=== PATIENT | female | born 1990 | race Caucasian/White ===

== ENCOUNTER 2017-05-06 16:43 | Emergency (ER) | payer MEDICAID ==
[2017-05-06 17:20] VITALS: BP 144/89
[2017-05-06] MEDS ORDERED: ACETAMINOPHEN 325 MG TABLET PO STA (18:24)
[2017-05-06] MEDS ORDERED: ACETAMINOPHEN 325 MG TABLET PO ONE (18:30)
--- NOTE | 2017-05-06 19:02 | ED Physician Documentation ---
PD HPI OPHTHO - Stated complaint Stated Complaint: RT EYE PX - Chief complaint Chief Complaint: Heent - History obtained from History obtained from: Patient - History of Present Illness Timing - onset: Yesterday (had some irritation right eye and feels like burning feeling lower eyelid and eye. Noted some redness lower aspect today. No rash around the eye. No hisotry of cold sores.) Timing - details: Gradual onset, Still present Location: Right Quality / character: Itching, Burning Associated symptoms: Redness, Swelling. No: Discharge, Matting, FB sensation, Decreased vision Contributing factors: Wears contacts Similar symptoms before: No diagnosis (had it milder the past few weeks for just day or two and then resolved.) Recently seen: Not recently seen Review of Systems Constitutional: denies: Fever, Chills Eyes: reports: Irritation. denies: Loss of vision, Decreased vision, Photophobia, Discharge Ears: denies: Ear pain Nose: denies: Rhinorrhea / runny nose, Congestion Throat: denies: Sore throat Respiratory: denies: Cough Skin: denies: Rash, Lesions PD PAST MEDICAL HISTORY - Past Medical History Past Medical History: No Cardiovascular: None Respiratory: None Neuro: None Endocrine/Autoimmune: None GI: Other HEENT: Other - Past Surgical History Past Surgical History: Yes General: Cholecystectomy - Present Medications Home Medications: Ambulatory Orders Medication Instructions Recorded Confirmed Ketotifen Fumarate [Alaway] 1 drops EACHEYE BID #10 ml 05/06/17 - Allergies Allergies/Adverse Reactions: Allergies Allergy/AdvReac Type Severity Reaction Status Date / Time banana Allergy Hives Verified 05/06/17 17:22 kiwi Allergy Anaphylaxis Verified 05/06/17 17:22 red (food color) Allergy Respiratory Verified 05/06/17 17:22 - Social History Does the pt smoke?: No Smoking Status: Never smoker Does the pt drink ETOH?: Yes Does the pt have substance abuse?: No - Immunizations Immunizations are current?: Yes - POLST Patient has POLST: No PD ED PE NORMAL - Vitals Vital signs reviewed: Yes - General General: Alert and oriented X 3, No acute distress, Well developed/nourished - HEENT HEENT: Ears normal, Pharynx benign PD ED PE EXPANDED - Eyes Eyes: Right eye, Eyelid swelling (mild lower lid), No eyelid FB (everted), Subconj hemorrhage (mild lower right eye). No: Eyelid erythema, Corneal FB, Fluorescein uptake Results - Vitals Vitals: Oxygen O2 Source Room air PD MEDICAL DECISION MAKING - ED course Complexity details: considered differential, d/w patient Departure - Departure Disposition: 01 Home, Self Care Clinical Impression: Conjunctivitis Qualifiers: Conjunctivitis type: acute Acute conjunctivitis type: unspecified Laterality: right Qualified Code(s): H10.31 - Unspecified acute conjunctivitis, right eye Condition: Stable Record reviewed to determine appropriate education?: Yes Instructions: ED Conjunctivitis Nonspecific Prescriptions: Ketotifen Fumarate [Alaway] 1 drops EACHEYE BID #10 ml Comments: For the right eye currently use the antibiotic/steroid eyedrops 4 times a day for the next 2-3 days until fully improved. Do not wear contacts and that I during the next several days. Recheck if not improved over the next couple of days. If you do get better, then use just the ketotifen antihistamine eyedrops twice daily in both eyes for the next month or so and see if he do not have any recurrent episodes. Follow-up with your hearing instrument specialist in the next week or so. Forms: Activity restrictions Discharge Date/Time: 05/06/17 19:59
[2017-05-06] MEDS ORDERED: NEOMYCIN/POLYMYX/DEXAMETH OPHTH DROPS 5 ML RIGHTEYE STA (19:35)
[2017-05-06] MEDS ORDERED: NEOMYCIN/POLYMYX/DEXAMETH OPHTH DROPS 5 ML ONE (19:44)
== END 2017-05-06 19:59 | disposition home or self-care (01) ==
LOC: ED 16:43
DX: H10.31 Unspecified acute conjunctivitis, right eye (principal)
CPT/HCPCS: 99283; A9270; J3490

== ENCOUNTER 2017-10-20 22:29 | Emergency (ER) | payer MEDICAID ==
[2017-10-21] MEDS ORDERED: KETOROLAC 60 MG/2 ML VIAL IVP STA (01:08)
[2017-10-21] MEDS ORDERED: SODIUM CHLORIDE 0.9% 1,000 ML IV STA (01:08)
--- NOTE | 2017-10-21 01:08 | ED Physician Documentation ---
PD HPI URI - Stated complaint Stated Complaint: FLU LIKE SYMPTOMS - Chief complaint Chief Complaint: Resp - History obtained from History obtained from: Patient - History of Present Illness Timing - onset: How many days ago (1-2) Timing duration: Days Timing details: Abrupt onset Associated symptoms: Fever (subjective (did not take temperature)), Chills, Sweats, Sore throat, Productive cough Similar symptoms before: Has not had sx before Recently seen: Not recently seen Review of Systems Constitutional: reports: Fever (subjective), Chills, Myalgias, Fatigue, Sweats Throat: reports: Sore throat Cardiac: denies: Chest pain / pressure Respiratory: reports: Cough GI: reports: Reviewed and negative PD PAST MEDICAL HISTORY - Past Medical History Past Medical History: No Cardiovascular: None Respiratory: None Neuro: None Endocrine/Autoimmune: None GI: Other HEENT: Other - Past Surgical History Past Surgical History: Yes General: Cholecystectomy - Present Medications Home Medications: Ambulatory Orders Medication Instructions Recorded Confirmed Ketotifen Fumarate [Alaway] 1 drops EACHEYE BID #10 ml 05/06/17 Benzonatate [Tessalon] 200 mg PO TID PRN #20 capsule 10/21/17 guaiFENesin/CODEINE [Robitussin AC] 5 ml PO Q6H PRN #100 udc 10/21/17 - Allergies Allergies/Adverse Reactions: Allergies Allergy/AdvReac Type Severity Reaction Status Date / Time banana Allergy Hives Verified 10/20/17 22:47 kiwi Allergy Anaphylaxis Verified 10/20/17 22:47 red (food color) Allergy Respiratory Verified 10/20/17 22:47 - Social History Does the pt smoke?: No Smoking Status: Never smoker Does the pt drink ETOH?: Yes Does the pt have substance abuse?: No - Immunizations Immunizations are current?: Yes - POLST Patient has POLST: No PD ED PE NORMAL - Vitals Vital signs reviewed: Yes - General General: Alert and oriented X 3, No acute distress, Well developed/nourished - HEENT HEENT: Moist mucous membranes, Pharynx benign - Neck Neck: Supple, no meningeal sign - Cardiac Cardiac: RRR, No murmur - Respiratory Respiratory: No respiratory distress, Other (scattered rhonci, predominantly right-sided) - Extremities Extremities: No edema Results - Vitals Vitals: Oxygen O2 Source Room air - Labs Labs: Laboratory Tests 10/20/17 10/21/17 10/21/17 22:50 01:18 01:18 WBC 10.2 RBC 4.83 Hgb 14.8 Hct 42.7 MCV 88.4 MCH 30.6 MCHC 34.6 RDW 14.2 Plt Count 195 MPV 7.9 Neut # 8.3 H Lymph # 1.2 L [place] # 0.6 Eos # 0.1 Baso # 0.0 Absolute Nucleated RBC 0.00 Nucleated RBC % 0.0 Sodium 137 Potassium 3.3 L Chloride 105 Carbon Dioxide 22 Anion Gap 10.0 BUN 5 L Creatinine 0.7 Estimated GFR (MDRD) 99 Glucose 96 Calcium 8.9 Total Bilirubin 1.0 AST 14 ALT 16 Alkaline Phosphatase 64 Total Protein 7.3 Albumin 4.2 Globulin 3.1 Albumin/Globulin Ratio 1.4 Lipase < 10 L Influenza A (Rapid) Negative Influenza B (Rapid) Negative Influenza Types A,B Ag - - Rads (name of study) chest xray Radiology: Prelim report reviewed, See rad report PD MEDICAL DECISION MAKING - ED course Complexity details: reviewed results, re-evaluated patient, considered differential, d/w patient Departure - Departure Disposition: 01 Home, Self Care Clinical Impression: Bronchitis Condition: Good Instructions: ED Upper Resp Infec No Abx Tx Follow-Up: [facility] [Provider Group] [facility] [Provider Group] Prescriptions: Benzonatate [Tessalon] 200 mg PO TID PRN #20 capsule PRN Reason: Cough guaiFENesin/CODEINE [Robitussin AC] 5 ml PO Q6H PRN #100 udc PRN Reason: Cough Forms: Activity restrictions Discharge Date/Time: 10/21/17 04:03
[2017-10-21 01:37] LABS: BASOPHILS % (AUTO) 0.4 %; EOSINOPHILS # (AUTO) 0.1 10^3/uL (0.0-0.7); HGB - HEMOGLOBIN 14.8 g/dL (12.0-16.0); LYMPHOCYTES # (AUTO) 1.2 10^3/uL (1.5-3.5); MEAN CORPUSCULAR HEMOGLOBIN 30.6 pg (27.0-31.0); MEAN CORPUSCULAR HGB CONC 34.6 g/dL (32.0-36.0); MEAN CORPUSCULAR VOLUME 88.4 fL (81.0-99.0); MEAN PLATELET VOLUME 7.9 fL (7.9-10.8); MONOCYTES # (AUTO) 0.6 10^3/uL (0.0-1.0); MONOCYTES % (AUTO) 5.7 %; NEUTROPHILS # (AUTO) 8.3 10^3/uL (1.5-6.6); NEUTROPHILS % (AUTO) 80.9 %; PLT - PLATELET COUNT 195 10^3/uL (130-450); RED BLOOD COUNT 4.83 10^6/uL (4.20-5.40); RED CELL DISTRIBUTION WIDTH 14.2 % (12.0-15.0); WHITE BLOOD COUNT 10.2 x10^3/uL (4.8-10.8)
[2017-10-21 01:38] LABS: ALBUMIN 4.2 g/dL (3.2-5.5); ALBUMIN/GLOBULIN RATIO 1.4 (1.0-2.2); ALKALINE PHOSPHATASE 64 IU/L (42-121); ALT ALANINE AMINOTRANSFERASE 16 IU/L (10-60); AST ASPARTATE AMINOTRANSFERASE 14 IU/L (10-42); BUN - BLOOD UREA NITROGEN 5 mg/dL (6-20); CALCIUM 8.9 mg/dL (8.5-10.3); CARBON DIOXIDE - CO2 22 mmol/L (21-32); CHLORIDE 105 mmol/L (101-111); CREATININE 0.7 mg/dL (0.4-1.0); GFR - MDRD 99 (>89); GLUCOSE 96 mg/dL (70-100); SODIUM 137 mmol/L (135-145); TOTAL PROTEIN 7.3 g/dL (6.7-8.2)
[2017-10-21 02:04] LABS: LIPASE < 10 U/L (22-51)
--- NOTE | 2017-10-21 03:43 | XRAY Preliminary Report ---
Exam: XR CHEST 2 VIEW X-RAY IMPRESSION: 1. No acute abnormality seen in the chest. [facility] SITE ID: [id number]
--- NOTE | 2017-10-21 03:43 | XRAY Report ---
EXAM: CHEST RADIOGRAPHY EXAM DATE: 10/21/2017 03:37 AM. CLINICAL HISTORY: Cough, dyspnea. COMPARISON: None. TECHNIQUE: 2 views. FINDINGS: Lungs/Pleura: No alveolar consolidation or pleural effusion seen. No pneumothorax. Mediastinum: Heart and mediastinal contours are unremarkable. Other: None. IMPRESSION: 1. No acute abnormality seen in the chest. [facility] Referring Provider Line: [phone] SITE ID: [id number]
[2017-10-21] MEDS ORDERED: guaiFENesin/CODEINE 5 ML UDC PO STA (03:47)
[2017-10-21 04:04] VITALS: BP 117/65
== END 2017-10-21 04:03 | disposition home or self-care (01) ==
LOC: ED 22:29
DX: J40 Bronchitis, not specified as acute or chronic (principal)
CPT/HCPCS: 36415; 71046; 80053; 83690; 85025; 87275; 87276; 96361; 96374; 99283; 99284; A9270

== ENCOUNTER 2018-10-16 02:17 | Emergency (ER) | payer MEDICAID ==
[2018-10-16] MEDS ORDERED: SODIUM CHLORIDE 0.9% 1,000 ML IV STA (02:30)
[2018-10-16] MEDS ORDERED: ONDANSETRON 4 MG/2 ML VIAL IVP STA (02:30)
[2018-10-16] MEDS ORDERED: MORPHINE 10 MG/ML VIAL IVP STA (02:30)
[2018-10-16] MEDS ORDERED: IOPAMIDOL-300 100 ML VIAL ONE (02:46)
[2018-10-16 02:50] LABS: BASOPHILS # (AUTO) 0.1 10^3/uL (0.0-0.1); BASOPHILS % (AUTO) 0.8 %; EOSINOPHILS # (AUTO) 0.1 10^3/uL (0.0-0.7); EOSINOPHILS % (AUTO) 1.2 %; HGB - HEMOGLOBIN 14.6 g/dL (12.0-16.0); LYMPHOCYTES # (AUTO) 0.8 10^3/uL (1.5-3.5); LYMPHOCYTES % (AUTO) 11.1 %; MEAN CORPUSCULAR HEMOGLOBIN 31.5 pg (27.0-31.0); MEAN CORPUSCULAR HGB CONC 34.7 g/dL (32.0-36.0); MEAN CORPUSCULAR VOLUME 90.8 fL (81.0-99.0); MEAN PLATELET VOLUME 7.5 fL (7.9-10.8); MONOCYTES # (AUTO) 0.2 10^3/uL (0.0-1.0); MONOCYTES % (AUTO) 3.5 %; NEUTROPHILS # (AUTO) 5.7 10^3/uL (1.5-6.6); NEUTROPHILS % (AUTO) 83.4 %; PLT - PLATELET COUNT 199 10^3/uL (130-450); RED BLOOD COUNT 4.64 10^6/uL (4.20-5.40); RED CELL DISTRIBUTION WIDTH 13.8 % (12.0-15.0); WHITE BLOOD COUNT 6.9 x10^3/uL (4.8-10.8)
[2018-10-16 03:05] LABS: ALBUMIN/GLOBULIN RATIO 1.3 (1.0-2.2); BILIRUBIN,TOTAL 1.1 mg/dL (0.2-1.0); CALCIUM 8.9 mg/dL (8.5-10.3); CREATININE 0.6 mg/dL (0.4-1.0)
[2018-10-16 03:13] LABS: HCG,QUALITATIVE BLOOD NEGATIVE
[2018-10-16] MEDS ORDERED: HYDROmorphone 1 MG/ML CARPUJECT IVP STA ×2 (03:39→03:49)
[2018-10-16] MEDS ORDERED: IOPAMIDOL-300 100 ML VIAL IVP ONE (03:43)
[2018-10-16] MEDS ORDERED: HALOPERIDOL 5 MG/ML VIAL IVP ONE (03:49)
--- NOTE | 2018-10-16 04:16 | CT Report ---
Reason: abd pain Procedure Date: 10/16/2018 Accession Number: [id number] / [id number] Procedure: CT - Abdomen/Pelvis W CPT Code: FULL RESULT: EXAM: CT ABDOMEN AND PELVIS EXAM DATE: 10/16/2018 03:40 AM. CLINICAL HISTORY: Abd pain. COMPARISONS: ABDOMEN/PELVIS W/ 05/10/2015 10:10 PM. TECHNIQUE: Routine helical CT imaging was performed through the abdomen and pelvis. IV contrast: ISOVUE 300 100mL. Enteric contrast: No. Reconstructions: Coronal and sagittal. In accordance with CT protocol optimization, one or more of the following dose reduction techniques were utilized for this exam: automated exposure control, adjustment of mA and/or KV based on patient size, or use of iterative reconstructive technique. FINDINGS: Lung Bases: Unremarkable. Liver: Normal. No masses. Gallbladder/Bile Ducts: Resected Spleen: Normal. Pancreas: Normal. Adrenal Glands: Normal. Kidneys: Normal. No masses or hydronephrosis. Peritoneal Cavity/Bowel: Normal. No free fluid, free air or adenopathy. No masses or acute inflammatory process. The appendix is well visualized and normal. Pelvic Organs: The uterus is midline. There is progressive enlargement of the left adnexal cyst/cystic lesion. This now in the axial plane measures 6.7 cm x 3.5 cm and previously measured approximately 3.6 cm x 3 cm. Spirit inferiorly this left adnexal cyst measures 4.9 cm and previously measured 3.2 cm. Vasculature: No aneurysms or other significant abnormality. Bones: No significant abnormality. Other: None. IMPRESSION: 1. No inflammatory changes of the colon nor small bowel. Normal-appearing appendix. 2. Enlarging left adnexal cyst/cystic lesion. [facility]
[2018-10-16 05:04] LABS: BILIRUBIN,URINE NEGATIVE (NEGATIVE); GLUCOSE, URINE (UA) NEGATIVE (NEGATIVE); KETONES,URINE (UA) 15 mg/dL (NEGATIVE); LEUKOCYTE ESTERASE, URINE NEGATIVE (NEGATIVE); NITRITE,URINE NEGATIVE (NEGATIVE); OCCULT BLOOD,URINE NEGATIVE (NEGATIVE); PH,URINE 6.5 PH (5.0-7.5); PROTEIN,URINE NEGATIVE (NEGATIVE); UROBILINOGEN,URINE 0.2 (NORMAL) E.U./dL (NORMAL)
[2018-10-16 05:07] LABS: HCG UR QUAL NEGATIVE
[2018-10-16 05:07] LABS: CLARITY,URINE CLEAR (CLEAR)
--- NOTE | 2018-10-16 05:24 | ED Physician Documentation ---
PD HPI ABD PAIN - Stated complaint Stated Complaint: ABD PX - Chief complaint Chief Complaint: Abd Pain - History obtained from History obtained from: Patient - History of Present Illness Timing - onset: How many hours ago (12) Timing - duration: Hours (12) Timing - details: Gradual onset Pain level max: 6 Pain level now: 6 Severity Comments: moderate Quality: Cramping Location: RLQ Radiation: Lower back Improved by: Vomiting Worsened by: Eating Associated symptoms: Nausea, Vomiting - Additional information Additional information: started after eating pizza for lunch Review of Systems Ten Systems: 10 systems reviewed and negative Constitutional: reports: Reviewed and negative Eyes: reports: Reviewed and negative Ears: reports: Reviewed and negative Nose: reports: Reviewed and negative Throat: reports: Reviewed and negative Cardiac: reports: Reviewed and negative Respiratory: reports: Reviewed and negative GI: reports: Abdominal Pain, Vomiting : reports: Reviewed and negative Skin: reports: Reviewed and negative Musculoskeletal: reports: Reviewed and negative Neurologic: reports: Reviewed and negative Psychiatric: reports: Reviewed and negative Endocrine: reports: Reviewed and negative Immunocompromised: reports: Reviewed and negative PD PAST MEDICAL HISTORY - Past Medical History Cardiovascular: None Respiratory: None Endocrine/Autoimmune: None GI: Other HEENT: Other - Past Surgical History Past Surgical History: Yes General: Cholecystectomy - Present Medications Home Medications: Ambulatory Orders Medication Instructions Recorded Confirmed Ketotifen Fumarate [Alaway] 1 drops EACHEYE BID #10 ml 05/06/17 Benzonatate [Tessalon] 200 mg PO TID PRN #20 capsule 10/21/17 guaiFENesin/CODEINE [Robitussin AC] 5 ml PO Q6H PRN #100 udc 10/21/17 Dicyclomine [Bentyl] 10 mg PO QID #20 capsule 10/16/18 Ondansetron Odt [Zofran] 4 mg TL Q6H PRN #10 tablet 10/16/18 - Allergies Allergies/Adverse Reactions: Allergies Allergy/AdvReac Type Severity Reaction Status Date / Time banana Allergy Hives Verified 10/20/17 22:47 kiwi Allergy Anaphylaxis Verified 10/20/17 22:47 red (food color) Allergy Respiratory Verified 10/20/17 22:47 - Living Situation Living Situation: reports: With family Living Arrangement: reports: At home - Social History Does the pt smoke?: No Smoking Status: Never smoker Does the pt drink ETOH?: Yes Does the pt have substance abuse?: No - Family History Family history: reports: Other (Reviewed and not pertinent) - Immunizations Immunizations are current?: Yes - POLST Patient has POLST: No PD ED PE NORMAL - Vitals Vital signs reviewed: Yes - General General: Alert and oriented X 3, No acute distress - HEENT HEENT: PERRL - Neck Neck: Supple, no meningeal sign - Cardiac Cardiac: RRR, No murmur - Respiratory Respiratory: Clear bilaterally - Abdomen Abdomen: Normal bowel sounds, Soft, Non tender, Non distended - Derm Derm: Warm and dry - Extremities Extremities: No deformity - Neuro Neuro: Alert and oriented X 3 - Psych Psych: Normal mood, Normal affect Results - Vitals Vitals: Vital Signs - 24 hr 10/16/18 10/16/18 02:20 04:14 Temperature 36.5 C 36.0 C L Heart Rate 105 H 82 Respiratory 16 14 Rate Blood Pressure 136/94 H 111/68 O2 Saturation 96 91 L Oxygen O2 Source Room air - Labs Labs: Laboratory Tests 10/16/18 10/16/18 10/16/18 02:30 02:41 02:41 WBC 6.9 RBC 4.64 Hgb 14.6 Hct 42.1 MCV 90.8 MCH 31.5 H MCHC 34.7 RDW 13.8 Plt Count 199 MPV 7.5 L Neut # (Auto) 5.7 Lymph # (Auto) 0.8 L [place] # (Auto) 0.2 Eos # (Auto) 0.1 Baso # (Auto) 0.1 Absolute Nucleated RBC 0.00 Nucleated RBC % 0.0 Sodium 134 L Potassium 3.6 Chloride 101 Carbon Dioxide 22 Anion Gap 11.0 BUN 10 Creatinine 0.6 Estimated GFR (MDRD) 117 Glucose 115 H Calcium 8.9 Total Bilirubin 1.1 H AST 24 ALT 21 Alkaline Phosphatase 63 Total Protein 7.0 Albumin 4.0 Globulin 3.0 Albumin/Globulin Ratio 1.3 Lipase 28 Serum HCG, Qual Urine Color Urine Clarity Urine pH Ur Specific [place] Urine Protein Urine Glucose (UA) Urine Ketones Urine Occult Blood Urine Nitrite Urine Bilirubin Urine Urobilinogen Ur Leukocyte Esterase Ur Microscopic Review Urine Culture Comments Urine HCG, Qual Influenza A (Rapid) Negative Influenza B (Rapid) Negative 03/26/19 03/26/19 03/26/19 02:41 02:45 04:44 WBC RBC Hgb Hct MCV MCH MCHC RDW Plt Count MPV Neut # (Auto) Lymph # (Auto) [place] # (Auto) Eos # (Auto) Baso # (Auto) Absolute Nucleated RBC Nucleated RBC % Sodium Potassium Chloride Carbon Dioxide Anion Gap BUN Creatinine Estimated GFR (MDRD) Glucose Calcium Total Bilirubin AST ALT Alkaline Phosphatase Total Protein Albumin Globulin Albumin/Globulin Ratio Lipase Serum HCG, Qual NEGATIVE Urine Color YELLOW Urine Clarity CLEAR Urine pH 6.5 Ur Specific [place] <=1.005 <=1.005 Urine Protein NEGATIVE Urine Glucose (UA) NEGATIVE Urine Ketones 15 H Urine Occult Blood NEGATIVE Urine Nitrite NEGATIVE Urine Bilirubin NEGATIVE Urine Urobilinogen 0.2 (NORMAL) Ur Leukocyte Esterase NEGATIVE Ur Microscopic Review NOT INDICATED Urine Culture Comments NOT INDICATED Urine HCG, Qual NEGATIVE Influenza A (Rapid) Influenza B (Rapid) - Rads (name of study) CT abdomen pelvis Radiology: Final report received (wnl) PD MEDICAL DECISION MAKING - ED course Complexity details: reviewed results, re-evaluated patient, considered differential, d/w patient, d/w family ED course: 28-year-old female with nausea, vomiting, abdominal pain. Labs and CT scan unremarkable. Symptoms improved with Dilaudid and Haldol. Patient discharged with return precautions since no acute cause of her pain was identified as well as Zofran and Bentyl for symptomatic relief. Departure - Departure Disposition: 01 Home, Self Care Clinical Impression: Abdominal pain Qualifiers: Abdominal location: generalized Qualified Code(s): R10.84 - Generalized abdominal pain Vomiting Qualifiers: Vomiting type: unspecified Vomiting Intractability: non-intractable Nausea presence: with nausea Qualified Code(s): R11.2 - Nausea with vomiting, unspecified Condition: Stable Instructions: Abdominal Pain, ED Nausea Vomiting Follow-Up: Your, PCP [Other] Prescriptions: Dicyclomine [Bentyl] 10 mg PO QID #20 capsule Ondansetron Odt [Zofran] 4 mg TL Q6H PRN #10 tablet PRN Reason: Nausea / Vomiting Comments: Take medications as needed for abdominal pain and vomiting. Follow-up with PCP within 24 hours for recheck. Return with worsening symptoms.
[2018-10-16 05:38] VITALS: BP 112/66
== END 2018-10-16 05:45 | disposition home or self-care (01) ==
LOC: ED 02:17
DX: R10.84 Generalized abdominal pain (principal); R11.2 Nausea with vomiting, unspecified
CPT/HCPCS: 36415; 74177; 80053; 81001; 81003; 81025; 83690; 84703; 85025; 87086; 87275; 87276; 96374; 96375; 99283

== ENCOUNTER 2018-11-06 08:00 | Outpatient (CLI) | payer MEDICAID | END 2018-11-06 23:59 | disposition home or self-care (01) | LOC: LAB.R 08:00 | PROVIDERS: ATTEND Family Medicine | DX: R30.0 Dysuria (principal) | CPT/HCPCS: 87086 ==

== ENCOUNTER 2019-03-13 19:50 | Emergency (ER) | payer OTHER, MEDICAID ==
--- NOTE | 2019-03-13 20:39 | XRAY Report ---
Reason: R/O Fx Procedure Date: 03/13/2019 Accession Number: [id number] / [id number] Procedure: XR - Wrist 3 View RT CPT Code: FULL RESULT: EXAM: RIGHT WRIST RADIOGRAPHY EXAM DATE: 03/13/2019 08:15 PM. CLINICAL HISTORY: Right medial wrist pain after twisting my plan feeling pop. R/O Fx. COMPARISON: None. TECHNIQUE: 3 views. FINDINGS: Bones: No acute fracture. Joints: Normal. No subluxations. Soft Tissues: Normal. No soft tissue swelling. IMPRESSION: No acute osseus abnormality. [facility]
[2019-03-13] MEDS ORDERED: MELOXICAM 7.5 MG TABLET PO STA (22:27)
--- NOTE | 2019-03-13 22:30 | ED Physician Documentation ---
History of Present Illness - Stated complaint Stated Complaint: RT WRIST PX - Chief complaint Chief Complaint: Trauma Ext - History obtained from History obtained from: Patient - History of Present Illness Timing: Today Pain level max: 5 Pain level now: 3 - Additonal information Additional information: 28-year-old female, works as a horizontal boring mill set up operator. She was at work tonight wringing out a mop when she felt a pop in her right wrist. She is right-handed. Worse with movement and better with rest. Review of Systems Constitutional: denies: Fever : denies: Now [facility] PD PAST MEDICAL HISTORY - Past Medical History Past Medical History: Yes Cardiovascular: None Respiratory: None Endocrine/Autoimmune: None GI: Cholelithiasis, Other HEENT: Other - Past Surgical History Past Surgical History: Yes General: Cholecystectomy - Present Medications Home Medications: Ambulatory Orders Medication Instructions Recorded Confirmed Ketotifen Fumarate [Alaway] 1 drops EACHEYE BID #10 ml 05/06/17 Benzonatate [Tessalon] 200 mg PO TID PRN #20 capsule 10/21/17 guaiFENesin/CODEINE [Robitussin AC] 5 ml PO Q6H PRN #100 udc 10/21/17 Dicyclomine [Bentyl] 10 mg PO QID #20 capsule 10/16/18 Ondansetron Odt [Zofran] 4 mg TL Q6H PRN #10 tablet 10/16/18 Meloxicam [Mobic] 15 mg PO DAILY PRN #20 tablet 03/13/19 - Allergies Allergies/Adverse Reactions: Allergies Allergy/AdvReac Type Severity Reaction Status Date / Time banana Allergy Hives Verified 10/20/17 22:47 kiwi Allergy Anaphylaxis Verified 10/20/17 22:47 red (food color) Allergy Respiratory Verified 10/20/17 22:47 - Social History Does the pt smoke?: Yes Smoking Status: Current every day smoker Does the pt drink ETOH?: Yes Does the pt have substance abuse?: No - Immunizations Immunizations are current?: Yes - POLST Patient has POLST: No PD ED PE NORMAL - Vitals Vital signs reviewed: Yes - General General: Alert and oriented X 3, No acute distress - HEENT HEENT: Moist mucous membranes - Derm Derm: Warm and dry - Extremities Extremities: Other (Mild diffuse tenderness to palpation about the right wrist. Pain with movement of the right thumb and right index finger. The pain is felt at the volar aspect of the wrist, radial aspect. No snuffbox tenderness.) - Neuro Neuro: Alert and oriented X 3 - Psych Psych: Normal mood, Normal affect Results - Vitals Vitals: Vital Signs - 24 hr 03/13/19 03/13/19 03/13/19 19:53 22:34 23:02 Temperature 36.5 C Heart Rate 62 66 Respiratory 16 15 18 Rate Blood Pressure 125/62 121/63 O2 Saturation 100 98 Oxygen O2 Source Room air - Rads (name of study) Right wrist x-ray Radiology: Prelim report reviewed, EMP read contemporaneously, See rad report (Normal) PD MEDICAL DECISION MAKING - ED course Complexity details: reviewed results, considered differential, d/w patient ED course: 28-year-old female with a right wrist sprain. Negative x-ray. Placed in a thumb spica splint, Velcro for comfort. We will continue supportive care and follow-up with her doctor and/or orthopedics. Patient counseled regarding signs and symptoms for which I believe and urgent re-evaluation would be necessary. Patient with good understanding of and agreement to plan and is comfortable going home at this time This document was made in part using voice recognition software. While efforts are made to proofread this document, sound alike and grammatical errors may occur. Departure - Departure Disposition: 01 Home, Self Care Clinical Impression: Right wrist sprain Qualifiers: Encounter type: initial encounter Qualified Code(s): S63.501A - Unspecified sprain of right wrist, initial encounter Condition: Good Instructions: ED Sprain Wrist Follow-Up: [facility] [Provider Group] - Within 1 week your,doctor in 1 week [Other] Prescriptions: Meloxicam [Mobic] 15 mg PO DAILY PRN #20 tablet PRN Reason: pain Comments: Follow-up with your doctor within 1 week for repeat evaluation. Wear the brace until that time. Return if you worsen. Forms: Activity restrictions Discharge Date/Time: 03/13/19 23:13
[2019-03-13 23:03] VITALS: BP 121/63
== END 2019-03-13 23:13 | disposition home or self-care (01) ==
LOC: ED 19:50
DX: S63.501A Unspecified sprain of right wrist, initial encounter (principal); X50.1XXA Overexertion from prolonged static or awkward postures, initial encounter; Y93.E5 Activity, floor mopping and cleaning; Y92.230 Patient room in hospital as the place of occurrence of the external cause; Y99.0 Civilian activity done for income or pay; F17.200 Nicotine dependence, unspecified, uncomplicated
CPT/HCPCS: 1040M; 73110; 99283; 99284; A9270

== ENCOUNTER 2019-05-19 10:20 | Emergency (ER) | payer MEDICAID ==
--- NOTE | 2019-05-19 12:29 | CT Report ---
Reason: facial contusion right cheek numb Procedure Date: 05/19/2019 Accession Number: [id number] / [id number] Procedure: CT - MAXILLOFACIAL WO CPT Code: FULL RESULT: EXAM: CT MAXILLOFACIAL WITHOUT CONTRAST EXAM DATE: 05/19/2019 12:02 PM. CLINICAL HISTORY: Facial contusion, right cheek numb. COMPARISONS: None. TECHNIQUE: Thin-section axial images were acquired of the face without contrast. Post-processing: Coronal and sagittal reformats. Other: None. In accordance with CT protocol optimization, one or more of the following dose reduction techniques were utilized for this exam: automated exposure control, adjustment of mA and/or KV based on patient size, or use of iterative reconstructive technique. FINDINGS: Soft Tissue: The infratemporal fossa and parapharyngeal spaces are unremarkable. Orbits: Symmetric and unremarkable. Bones: No fracture or bone lesion. Temporomandibular Joints: The temporomandibular joints are symmetric and normally located. Sinuses: Mild bilateral maxillary and ethmoid and sphenoid sinus disease. No air-fluid levels. Mastoid air cells are clear. Other: Intracranial structures are unremarkable. Included portions of the cervical spine are unremarkable. No enlarged cervical lymph nodes are identified. No radiopaque foreign bodies. IMPRESSION: 1. No acute osseous abnormalities. 2. Normal alignment of the temporomandibular joints. 3. Mild bilateral maxillary, ethmoid and sphenoid sinus disease. [facility]
--- NOTE | 2019-05-19 12:37 | ED Physician Documentation ---
PD HPI HEAD INJURY - Stated complaint Stated Complaint: LIP LAC - Chief complaint Chief Complaint: Wound - History obtained from History obtained from: Patient, Family - History of Present Illness Mechanism of head injury: Fell Where head injury occurred: Home Timing - onset: Today Location of injury: Front Quality of pain: Pain Associated symptoms: No: LOC, AMS, Amnesia, Nausea / vomiting, Neck pain, Paresthesias, Seizures, Ear drainage, Nasal drainage Symptoms improve with: Rest Symptoms worsen with: Palpation, Movement Contributing factors: No: Anticoagulated Similar symptoms before: Has not had sx before Recently seen: Not recently seen - Additional information Additional information: 28 y/o female admits to drinking last night and today she fell forward and landed on the right side of her face. She has a laceration to the right upper lip buccal mucosa, pain over the right maxillary sinus and numbness to the face over the right cheek. Review of Systems Constitutional: denies: Fever Eyes: denies: Decreased vision Ears: denies: Ear pain Nose: reports: Rhinorrhea / runny nose, Congestion Throat: denies: Sore throat Cardiac: denies: Chest pain / pressure, Palpitations Respiratory: reports: Cough. denies: Dyspnea GI: denies: Vomiting PD PAST MEDICAL HISTORY - Past Medical History Cardiovascular: None Respiratory: None Endocrine/Autoimmune: None GI: Cholelithiasis, Other HEENT: Other - Past Surgical History Past Surgical History: Yes General: Cholecystectomy - Present Medications Home Medications: Ambulatory Orders Medication Instructions Recorded Confirmed Ketotifen Fumarate [Alaway] 1 drops EACHEYE BID #10 ml 05/06/17 Benzonatate [Tessalon] 200 mg PO TID PRN #20 capsule 10/21/17 guaiFENesin/CODEINE [Robitussin AC] 5 ml PO Q6H PRN #100 udc 10/21/17 Dicyclomine [Bentyl] 10 mg PO QID #20 capsule 10/16/18 Ondansetron Odt [Zofran] 4 mg TL Q6H PRN #10 tablet 10/16/18 Meloxicam [Mobic] 15 mg PO DAILY PRN #20 tablet 03/13/19 Azithromycin [Zithromax] 250 mg PO DAILY #6 tablet 05/19/19 - Allergies Allergies/Adverse Reactions: Allergies Allergy/AdvReac Type Severity Reaction Status Date / Time banana Allergy Hives Verified 10/20/17 22:47 kiwi Allergy Anaphylaxis Verified 10/20/17 22:47 red (food color) Allergy Respiratory Verified 10/20/17 22:47 - Social History Does the pt smoke?: Yes Smoking Status: Current every day smoker Does the pt drink ETOH?: Yes Does the pt have substance abuse?: No - Immunizations Immunizations are current?: Yes - POLST Patient has POLST: No PD ED PE NORMAL - Vitals Vital signs reviewed: Yes - General General: Alert and oriented X 3, No acute distress, Well developed/nourished - HEENT HEENT: PERRL, EOMI, Other (There is a deep jagged laceration of the lower lip buccal mucosa on the right side. There is tenderness to the right maxillary sinus and not to the zygomatic arch or upper orbit. The patient exhibits anxious pain behavior more dramatic than the injury indicates. There is inflamation to the left TM with distortion of the landmarks and the right is only minimally inflamed. ) - Neck Neck: Supple, no meningeal sign, No bony TTP - Cardiac Cardiac: RRR, No murmur - Respiratory Respiratory: No respiratory distress, Clear bilaterally - Abdomen Abdomen: Soft, Non tender - Back Back: No CVA TTP, No spinal TTP - Derm Derm: Normal color, Warm and dry, No rash - Neuro Neuro: Alert and oriented X 3, talent acquisition administrator 2-12 intact, No motor deficit, No sensory deficit, Normal speech Eye Opening: Spontaneous Motor: Obeys Commands Verbal: Oriented GCS Score: 15 - Psych Psych: Normal mood, Normal affect Results - Vitals Vitals: Vital Signs - 24 hr 05/19/19 05/19/19 10:23 13:09 Temperature 36.5 C 37 C Heart Rate 81 79 Respiratory 18 15 Rate Blood Pressure 111/77 110/60 O2 Saturation 100 100 Oxygen O2 Source Room air - Rads (name of study) CT facial bones. Radiology: Prelim report reviewed (Impression: 1. No acute osseous abnormalities. Normal alignment of the temporomandibular joints. Mild bilateral maxillary, ethmoid and sphenoid sinus disease.), EMP read indepedently, See rad report PD MEDICAL DECISION MAKING - ED course Complexity details: reviewed results, re-evaluated patient, considered differential, d/w patient, d/w family ED course: 28-year-old female was fallen and injured her upper lip and has some numbness to the area over her maxillary sinus has no evidence of fracture on CT scan and examination of the facial bones. Her lip laceration is on the mucosal surface and will not require suturing. There is no involvement of the vermilion border.She does have mild sinus disease on CT exam and she has otitis on exam. She has only mild cough and dizziness. Departure - Departure Disposition: 01 Home, Self Care Clinical Impression: Otitis media Qualifiers: Otitis media type: suppurative Chronicity: acute Laterality: left Recurrence: not specified as recurrent Spontaneous tympanic membrane rupture: without spontaneous rupture Qualified Code(s): H66.002 - Acute suppurative otitis media without spontaneous rupture of ear drum, left ear Contusion of face Qualifiers: Encounter type: initial encounter Qualified Code(s): S00.83XA - Contusion of o ther part of head, initial encounter Lip laceration Qualifiers: Encounter type: initial encounter Qualified Code(s): S01.511A - Laceration without foreign body of lip, initial encounter Condition: Stable Instructions: ED Laceration Mouth, ED Otitis Media Acute Adult Follow-Up: Justyn Hester MD [Primary Care Provider] - Prescriptions: Azithromycin [Zithromax] 250 mg PO DAILY #6 tablet Discharge Date/Time: 05/19/19 13:09
[2019-05-19 13:10] VITALS: BP 110/60
== END 2019-05-19 13:09 | disposition home or self-care (01) ==
LOC: ED 10:20
DX: S01.511A Laceration without foreign body of lip, initial encounter (principal); W01.198A Fall on same level from slipping, tripping and stumbling with subsequent striking against other object, initial encounter; Y93.89 Activity, other specified; Y92.009 Unspecified place in unspecified non-institutional (private) residence as the place of occurrence of the external cause; H66.002 Acute suppurative otitis media without spontaneous rupture of ear drum, left ear; F17.200 Nicotine dependence, unspecified, uncomplicated
CPT/HCPCS: 70486; 99283; 99284

== ENCOUNTER 2019-07-25 13:47 | Emergency (ER) | payer MEDICAID ==
[2019-07-25] MEDS ORDERED: ONDANSETRON 4 MG/2 ML VIAL IVP STA (15:39)
[2019-07-25] MEDS ORDERED: KETOROLAC 30 MG/ML VIAL IVP STA (15:39)
[2019-07-25] MEDS ORDERED: LACTATED RINGERS 1,000 ML IV STA (15:39)
[2019-07-25] MEDS ORDERED: SODIUM CHLORIDE 0.9% 1,000 ML IV ONE (15:39)
--- NOTE | 2019-07-25 15:41 | ED Physician Documentation ---
History of Present Illness - Stated complaint Stated Complaint: VOMITING/FEVER - Chief complaint Chief Complaint: General - History obtained from History obtained from: Patient - History of Present Illness Timing: Other (3 days of fevers, chills, body aches, nausea, cough. No recent intl travel.) Review of Systems Constitutional: reports: Fever, Chills, Myalgias, Sweats Nose: denies: Rhinorrhea / runny nose, Congestion Throat: denies: Sore throat Cardiac: denies: Chest pain / pressure, Palpitations Respiratory: reports: Cough. denies: Dyspnea GI: reports: Nausea. denies: Abdominal Pain, Diarrhea PD PAST MEDICAL HISTORY - Past Medical History Cardiovascular: None Respiratory: None Endocrine/Autoimmune: None GI: Cholelithiasis, Other HEENT: Other - Past Surgical History Past Surgical History: Yes General: Cholecystectomy - Present Medications Home Medications: Ambulatory Orders Medication Instructions Recorded Confirmed Ketotifen Fumarate [Alaway] 1 drops EACHEYE BID #10 ml 05/06/17 Benzonatate [Tessalon] 200 mg PO TID PRN #20 capsule 10/21/17 guaiFENesin/CODEINE [Robitussin AC] 5 ml PO Q6H PRN #100 udc 10/21/17 Dicyclomine [Bentyl] 10 mg PO QID #20 capsule 10/16/18 Ondansetron Odt [Zofran] 4 mg TL Q6H PRN #10 tablet 10/16/18 Meloxicam [Mobic] 15 mg PO DAILY PRN #20 tablet 03/13/19 Azithromycin [Zithromax] 250 mg PO DAILY #6 tablet 05/19/19 Ibuprofen [Motrin] 800 mg PO Q8H PRN #30 tablet 07/25/19 Ondansetron Odt [Zofran] 4 mg TL Q6H PRN #10 tablet 07/25/19 guaiFENesin/CODEINE [Robitussin AC] 5 - 10 ml PO Q6H PRN #120 ml 07/25/19 - Allergies Allergies/Adverse Reactions: Allergies Allergy/AdvReac Type Severity Reaction Status Date / Time banana Allergy Hives Verified 07/25/19 13:54 kiwi Allergy Anaphylaxis Verified 07/25/19 13:54 red (food color) Allergy Respiratory Verified 07/25/19 13:54 - Social History Does the pt smoke?: Yes Smoking Status: Current every day smoker Does the pt drink ETOH?: Yes Does the pt have substance abuse?: No - Immunizations Immunizations are current?: Yes - POLST Patient has POLST: No PD ED PE NORMAL - Vitals Vital signs reviewed: Yes - General General: Alert and oriented X 3, No acute distress - HEENT HEENT: PERRL, Ears normal, Pharynx benign - Neck Neck: Supple, no meningeal sign, No bony TTP - Cardiac Cardiac: RRR, No murmur - Respiratory Respiratory: No respiratory distress, Clear bilaterally - Abdomen Abdomen: Normal bowel sounds, Soft, Non tender - Back Back: No CVA TTP, No spinal TTP - Derm Derm: Normal color, Warm and dry - Extremities Extremities: No edema, No calf tenderness / cord - Neuro Neuro: Alert and oriented X 3, Normal speech - Psych Psych: Normal mood, Normal affect Results - Vitals Vitals: Vital Signs - 24 hr 07/25/19 07/25/19 07/25/19 13:54 13:59 15:59 Temperature 36.6 C 36.6 C 36.4 C L Heart Rate 70 61 60 Respiratory 16 18 14 Rate Blood Pressure 116/65 106/63 94/65 O2 Saturation 98 98 99 07/25/19 18:20 Temperature Heart Rate 78 Respiratory 16 Rate Blood Pressure 113/68 O2 Saturation 99 Oxygen O2 Source Room air - Labs Labs: Laboratory Tests 07/25/19 07/25/19 07/25/19 15:30 15:30 16:18 Sodium 136 Potassium 3.6 Chloride 105 Carbon Dioxide 22 Anion Gap 9.0 BUN 7 Creatinine 0.7 Estimated GFR (MDRD) 98 Glucose 88 Calcium 8.6 Total Bilirubin 0.6 AST 21 ALT 17 Alkaline Phosphatase 61 Total Protein 7.1 Albumin 4.1 Globulin 3.0 Albumin/Globulin Ratio 1.4 Lipase 32 Urine Color DARK YELLOW Urine Clarity HAZY Urine pH 6.0 Ur Specific [place] 1.025 Urine Protein TRACE Urine Glucose (UA) NEGATIVE Urine Ketones 15 H Urine Occult Blood MODERATE H Urine Nitrite NEGATIVE Urine Bilirubin SMALL H Urine Urobilinogen 0.2 (NORMAL) Ur Leukocyte Esterase SMALL H Urine RBC 6-10 H Urine WBC >25 H Ur Squamous Epith Cells MANY Squamous H Urine Bacteria Many H Urine Mucus Ur Microscopic Review INDICATED Urine Culture Comments NOT INDICATED Urine HCG, Qual NEGATIVE Influenza A (Rapid) Negative Influenza B (Rapid) Negative 07/25/19 17:40 Sodium Potassium Chloride Carbon Dioxide Anion Gap BUN Creatinine Estimated GFR (MDRD) Glucose Calcium Total Bilirubin AST ALT Alkaline Phosphatase Total Protein Albumin Globulin Albumin/Globulin Ratio Lipase Urine Color YELLOW Urine Clarity HAZY Urine pH 6.0 Ur Specific [place] 1.025 Urine Protein TRACE Urine Glucose (UA) NEGATIVE Urine Ketones 40 H Urine Occult Blood NEGATIVE Urine Nitrite NEGATIVE Urine Bilirubin NEGATIVE Urine Urobilinogen 0.2 (NORMAL) Ur Leukocyte Esterase NEGATIVE Urine RBC 0-5 Urine WBC 0-3 Ur Squamous Epith Cells FEW Squamous Urine Bacteria Few Urine Mucus Few Strands Ur Microscopic Review INDICATED Urine Culture Comments NOT INDICATED Urine HCG, Qual Influenza A (Rapid) Influenza B (Rapid) PD MEDICAL DECISION MAKING - ED course ED course: 29-year-old woman with a flulike illness, flu swab was negative, could be false negative given the current outbreak but inconsequential as she has been sick for 3 days and would not merit treatment with antivirals. Feeling better after IV fluids and symptomatic meds. Initial UA dirty looking but contaminated, subsequent UA was normal. Departure - Departure Disposition: 01 Home, Self Care Clinical Impression: Viral syndrome, Dehydration Condition: Good Record reviewed to determine appropriate education?: Yes Instructions: ED Dehydration, ED Viral Syndrome Prescriptions: guaiFENesin/CODEINE [Robitussin AC] 5 - 10 ml PO Q6H PRN #120 ml PRN Reason: Cough Ibuprofen [Motrin] 800 mg PO Q8H PRN #30 tablet PRN Reason: PAIN &/OR FEVER Ondansetron Odt [Zofran] 4 mg TL Q6H PRN #10 tablet PRN Reason: Nausea / Vomiting Comments: Call your doctor to arrange a follow-up appointment, make the next available appointment. In the interim, return anytime if worse or if new symptoms develop. Forms: Activity restrictions Discharge Date/Time: 07/25/19 18:21
[2019-07-25 16:00] LABS: ALBUMIN 4.1 g/dL (3.2-5.5); ALBUMIN/GLOBULIN RATIO 1.4 (1.0-2.2); BILIRUBIN,TOTAL 0.6 mg/dL (0.2-1.0); CALCIUM 8.6 mg/dL (8.5-10.3); CREATININE 0.7 mg/dL (0.4-1.0); TOTAL PROTEIN 7.1 g/dL (6.7-8.2)
[2019-07-25 16:33] LABS: GLUCOSE, URINE (UA) NEGATIVE (NEGATIVE); KETONES,URINE (UA) 15 mg/dL (NEGATIVE); LEUKOCYTE ESTERASE, URINE SMALL (NEGATIVE); NITRITE,URINE NEGATIVE (NEGATIVE); OCCULT BLOOD,URINE MODERATE (NEGATIVE); PROTEIN,URINE TRACE mg/dL (NEGATIVE); UROBILINOGEN,URINE 0.2 (NORMAL) E.U./dL (NORMAL)
[2019-07-25 16:38] LABS: BILIRUBIN,URINE SMALL (NEGATIVE); CLARITY,URINE HAZY (CLEAR); HCG UR QUAL NEGATIVE; ICTOTEST,URINE POSITIVE
[2019-07-25 16:50] LABS: BACTERIA,URINE Many /HPF (None Seen); SQUAMOUS EPITHELIAL CELL,UR MANY Squamous (<= Few)
[2019-07-25 17:56] LABS: GLUCOSE, URINE (UA) NEGATIVE (NEGATIVE); KETONES,URINE (UA) 40 mg/dL (NEGATIVE); LEUKOCYTE ESTERASE, URINE NEGATIVE (NEGATIVE); NITRITE,URINE NEGATIVE (NEGATIVE); OCCULT BLOOD,URINE NEGATIVE (NEGATIVE); PROTEIN,URINE TRACE mg/dL (NEGATIVE); UROBILINOGEN,URINE 0.2 (NORMAL) E.U./dL (NORMAL)
[2019-07-25 18:04] LABS: BILIRUBIN,URINE NEGATIVE (NEGATIVE); CLARITY,URINE HAZY (CLEAR); ICTOTEST,URINE NEGATIVE
[2019-07-25 18:08] LABS: BACTERIA,URINE Few /HPF (None Seen); MUCUS,URINE Few Strands; RBC,URINE 0-5 /HPF (0-5); SQUAMOUS EPITHELIAL CELL,UR FEW Squamous (<= Few)
[2019-07-25 18:20] VITALS: BP 113/68
== END 2019-07-25 18:21 | disposition home or self-care (01) ==
LOC: ED 13:47
DX: B34.9 Viral infection, unspecified (principal); E86.0 Dehydration; F17.200 Nicotine dependence, unspecified, uncomplicated
CPT/HCPCS: 36415; 80053; 81001; 81025; 83690; 87275; 87276; 96361; 96374; 99283; J7120; 81003; 87086

== ENCOUNTER 2019-12-17 12:07 | Outpatient (CLI) | payer SELFPAY ==
--- NOTE | 2019-12-18 10:57 | XRAY Report ---
Reason: LT KNEE STRAIN Procedure Date: 12/17/2019 Accession Number: [id number] / [id number] Procedure: XR - Knee 4 View LT CPT Code: Final Report FULL RESULT: EXAM: LEFT KNEE RADIOGRAPHY EXAM DATE: 12/17/2019 12:26 PM. CLINICAL HISTORY: LT KNEE STRAIN. COMPARISON: None. TECHNIQUE: 4 views. FINDINGS: Bones: Normal. No fractures or bone lesions. Joints: Normal. No effusion. No subluxations. Soft Tissues: Normal. No soft tissue swelling. IMPRESSION: Normal left knee radiography. RADIA
== END 2019-12-17 12:08 | disposition home or self-care (01) ==
LOC: DI 12:07
PROVIDERS: ATTEND Physician Assistant
DX: S86.812A Strain of other muscle(s) and tendon(s) at lower leg level, left leg, initial encounter (principal)

== ENCOUNTER 2020-04-22 09:17 | Emergency (ER) | payer MEDICAID ==
[2020-04-22] MEDS ORDERED: BENZONATATE 100 MG CAPSULE PO STA (09:33)
[2020-04-22] MEDS ORDERED: AZITHROMYCIN 250 MG TABLET PO STA (09:33)
[2020-04-22] MEDS ORDERED: guaiFENesin/CODEINE 5 ML UDC PO STA (09:33)
--- NOTE | 2020-04-22 09:35 | ED Physician Documentation ---
History of Present Illness - Stated complaint Stated Complaint: COUGH/SOA - Chief complaint Chief Complaint: Resp - History obtained from History obtained from: Patient - Additonal information Additional information: G2, P1 at 5 weeks gestation presents with a 3-day illness with productive cough that is quite violent, body aches but no fevers. Also some sinus pain. No sick contacts. Review of Systems Constitutional: reports: Chills, Myalgias, Fatigue. denies: Fever Nose: reports: Rhinorrhea / runny nose, Sinus pressure / pain Respiratory: reports: Cough. denies: Dyspnea GI: denies: Vomiting, Diarrhea PD PAST MEDICAL HISTORY - Past Medical History Cardiovascular: None Respiratory: None Endocrine/Autoimmune: None GI: Cholelithiasis, Other HEENT: Other - Past Surgical History Past Surgical History: Yes General: Cholecystectomy - Present Medications Home Medications: Ambulatory Orders Medication Instructions Recorded Confirmed Azithromycin [Zithromax] 1 tab PO DAILY #4 tab 04/22/20 Benzonatate [Tessalon Perle] 100 - 200 mg PO TID PRN #30 capsule 04/22/20 guaiFENesin/CODEINE [Robitussin AC] 5 - 10 ml PO Q6H PRN #120 ml 04/22/20 - Allergies Allergies/Adverse Reactions: Allergies Allergy/AdvReac Type Severity Reaction Status Date / Time banana Allergy Hives Verified 04/22/20 09:19 kiwi Allergy Anaphylaxis Verified 04/22/20 09:19 red (food color) Allergy Respiratory Verified 04/22/20 09:19 bees Allergy Unknown Uncoded 07/26/19 08:30 - Social History Does the pt smoke?: Yes Smoking Status: Current every day smoker Does the pt drink ETOH?: Yes Does the pt have substance abuse?: No - Immunizations Immunizations are current?: Yes - POLST Patient has POLST: No PD ED PE NORMAL - Vitals Vital signs reviewed: Yes - General General: Alert and oriented X 3, No acute distress - HEENT HEENT: PERRL, EOMI - Neck Neck: Supple, no meningeal sign, No bony TTP, No bruit - Cardiac Cardiac: RRR, No murmur - Respiratory Respiratory: No respiratory distress, Clear bilaterally - Abdomen Abdomen: Non tender - Derm Derm: No rash - Neuro Neuro: Alert and oriented X 3, Normal speech Results - Vitals Vitals: Vital Signs - 24 hr 04/22/20 04/22/20 09:20 10:09 Temperature 37 C 37.2 C Heart Rate 88 80 Respiratory 20 16 Rate Blood Pressure 114/70 132/74 H O2 Saturation 98 98 Oxygen O2 Source Room air PD MEDICAL DECISION MAKING - ED course ED course: 29-year-old woman early with bronchitis. We discussed what medications were safe for symptom relief and what were not. Bedside ultrasound was indeterminant given the early gestational age. Departure - Departure Disposition: 01 Home, Self Care Clinical Impression: Bronchitis Qualifiers: Weeks of gestation: less than 8 weeks Qualified Code(s): Z3A.01 - Less than 8 weeks gestation of Condition: Stable Instructions: ED Upper Resp Infec Abx Tx Prescriptions: guaiFENesin/CODEINE [Robitussin AC] 5 - 10 ml PO Q6H PRN #120 ml PRN Reason: Cough Benzonatate [Tessalon Perle] 100 - 200 mg PO TID PRN #30 capsule PRN Reason: Cough Azithromycin [Zithromax] 1 tab PO DAILY #4 tab Comments: Tylenol as needed for pain. You need to self quarantine until coronavirus testing is complete, approximately 24 to 48 hours. You can log into the [email or web address] website and set up an account for the patient portal to see when the result is done but we will call if positive. Discharge Date/Time: 04/22/20 10:09
[2020-04-22 10:10] VITALS: BP 132/74
== END 2020-04-22 10:09 | disposition home or self-care (01) ==
LOC: ED 09:17
DX: O99.89 Other specified diseases and conditions complicating pregnancy, childbirth and the puerperium (principal); J40 Bronchitis, not specified as acute or chronic; O99.331 Smoking (tobacco) complicating pregnancy, first trimester; Z3A.01 Less than 8 weeks gestation of pregnancy; Z20.828 Contact with and (suspected) exposure to other viral communicable diseases
CPT/HCPCS: 87635; 99283; 99284; A9270

== ENCOUNTER 2020-04-24 08:00 | Outpatient (CLI) | payer MEDICAID ==
[2020-04-24 17:27] LABS: MUDS CUTOFF CONCENTRATIONS CUTOFF CONC BELOW:
[2020-04-24 17:37] LABS: BILIRUBIN,URINE NEGATIVE (NEGATIVE); GLUCOSE, URINE (UA) NEGATIVE (NEGATIVE); KETONES,URINE (UA) NEGATIVE (NEGATIVE); LEUKOCYTE ESTERASE, URINE NEGATIVE (NEGATIVE); NITRITE,URINE NEGATIVE (NEGATIVE); OCCULT BLOOD,URINE NEGATIVE (NEGATIVE); PROTEIN,URINE NEGATIVE (NEGATIVE); UROBILINOGEN,URINE 0.2 (NORMAL) E.U./dL (NORMAL)
[2020-04-24 17:52] LABS: BACTERIA,URINE Few /HPF (None Seen); CLARITY,URINE CLEAR (CLEAR); RBC,URINE 0-5 /HPF (0-5); SQUAMOUS EPITHELIAL CELL,UR MANY Squamous (<= Few)
[2020-04-24 17:54] LABS: AMPHETAMINE SCREEN,URINE NEGATIVE (NEGATIVE); BENZODIAZEPINES SCREEN, URINE NEGATIVE (NEGATIVE); COCAINE SCREEN URINE NEGATIVE (NEGATIVE); METHADONE SCREEN, URINE NEGATIVE (NEGATIVE); METHAMPHETAMINES SCREEN, URINE NEGATIVE (NEGATIVE); OPIATE SCREEN, URINE POSITIVE (NEGATIVE); OXYCODONE SCREEN, URINE NEGATIVE (NEGATIVE); PROPOXYPHENE SCREEN, URINE NEGATIVE (NEGATIVE); TRICYCLIC ANTIDEPRESSANT,URINE NEGATIVE (NEGATIVE)
== END 2020-04-24 08:01 | disposition home or self-care (01) ==
LOC: LAB.R 08:00
PROVIDERS: ATTEND Nurse Practitioner Obstetrics & Gynecology
DX: Z32.01 Encounter for pregnancy test, result positive (principal)
CPT/HCPCS: 80306; 81001; 87086

== ENCOUNTER 2020-05-05 10:25 | Outpatient (CLI) | payer MEDICAID ==
--- NOTE | 2020-05-05 16:37 | Ultrasound Report ---
PROCEDURE: OB First Trimester w/TV INDICATIONS: POSITIVE PREGANCY TEST OUTSIDE/PRIOR DATING DATA: Last menstrual period (LMP): 03/09/2020. LMP-based estimated date of delivery (ILANA): 12/14/2020. First dating scan (date and location): 05/05/2020. Estimated date of delivery (ILANA) from first dating scan: 12/16/2020. TECHNIQUE: Real-time scanning was performed of the fetus and maternal pelvic organs, with image documentation. Endovaginal scanning was also performed to better visualize the fetus and maternal ovaries. COMPARISON: None FINDINGS: Embryo: Single live intrauterine is identified with crown-rump length measuring 1.5 cm cor responds to 7 weeks 6 days. heart rate is identified at 1 65 bpm. Measurement variability in dating: +/- 4 weeks by LMP, +/- 7 days by mean sac diameter (use before 6 weeks gestation if crown-rump length not able to be measured), +/- 5 days by crown-rump length (6-12 weeks gestation). Maternal organs: Ovaries are unremarkable. Limited images through the kidneys demonstrate no hydron ephrosis. There is incidental note of a left renal cyst measuring 17 x 16 x 18 mm. IMPRESSION: Single live intrauterine with ultrasound gestational age today of 7 weeks 6 days correspond ing to ultrasound ILANA of 11/2620. Recommend follow-up imaging at 20-22 weeks for dates and anatomy. Reviewed by: Alicia Murillo MD on 05/05/2020 4:36 PM PDT Approved by: Alicia Murillo MD on 05/05/2020 4:36 PM PDT Station ID: [id number]
== END 2020-05-05 10:26 | disposition home or self-care (01) ==
LOC: DI 10:25
PROVIDERS: ATTEND Nurse Practitioner Obstetrics & Gynecology
DX: Z32.01 Encounter for pregnancy test, result positive (principal)
CPT/HCPCS: 76801; 76817

== ENCOUNTER 2020-06-03 15:33 | Outpatient (CLI) | payer MEDICAID ==
[2020-06-03 16:05] LABS: BASOPHILS % (AUTO) 0.3 %; EOSINOPHILS # (AUTO) 0.1 10^3/uL (0.0-0.7); EOSINOPHILS % (AUTO) 0.7 %; HGB - HEMOGLOBIN 14.6 g/dL (12.0-16.0); LYMPHOCYTES # (AUTO) 1.8 10^3/uL (1.5-3.5); LYMPHOCYTES % (AUTO) 24.3 %; MEAN CORPUSCULAR HEMOGLOBIN 32.6 pg (27.0-31.0); MEAN CORPUSCULAR HGB CONC 35.4 g/dL (32.0-36.0); MEAN CORPUSCULAR VOLUME 92.2 fL (81.0-99.0); MEAN PLATELET VOLUME 9.4 fL (7.9-10.8); MONOCYTES # (AUTO) 0.5 10^3/uL (0.0-1.0); MONOCYTES % (AUTO) 7.3 %; NEUTROPHILS % (AUTO) 67.1 %; PLT - PLATELET COUNT 224 10^3/uL (130-450); RED BLOOD COUNT 4.48 10^6/uL (4.20-5.40); RED CELL DISTRIBUTION WIDTH 13.2 % (12.0-15.0); WHITE BLOOD COUNT 7.4 x10^3/uL (4.8-10.8)
[2020-06-04 14:21] LABS: HEPATITIS B SURFACE ANTIGEN NON-REACTIVE (NON-REACTIVE); HEPATITIS C ANTIBODY NON-REACTIVE (NON-REACTIVE)
[2020-06-04 15:36] LABS: HIV AG/AB 4TH GEN NON-REACTIVE (NON-REACTIVE)
== END 2020-06-03 15:34 | disposition home or self-care (01) ==
LOC: LAB 15:33
PROVIDERS: ATTEND Obstetrics & Gynecology
DX: Z36.89 Encounter for other specified antenatal screening (principal)
CPT/HCPCS: 36415; 81599; 85025; 86592; 86762; 86787; 86803; 86850; 86900; 86901; 87340; 87389

== ENCOUNTER 2020-07-04 03:38 | Emergency (ER) | payer MEDICAID ==
--- NOTE | 2020-07-04 03:46 | ED Physician Documentation ---
PD HPI NVD - Stated complaint Stated Complaint: VOMITING - Chief complaint Chief Complaint: Abd Pain - History obtained from History obtained from: Patient - History of Present Illness Timing - onset: How many days ago (1.5 days ago) Timing - details: Gradual onset Pain level max: 0 Pain level now: 0 Associated symptoms: No: Fever, Abdominal pain Improved by: Other (nothing) Worsened by: Eating Similar symptoms before: Has not had sx before Recently seen: Not recently seen - Additonal information Additional information: BIBA. patient is 16 weeks . c/o nausea and vomiting x 1.5 days that has progressed to the point of not being able to tolerate any PO including sips of liquids. She took a dose of antinauseant earlier this evening (she thinks it is promethazine) without improvement. Has had US in this showing viable IUP. Review of Systems Constitutional: denies: Fever, Chills, Sweats Cardiac: reports: Reviewed and negative Respiratory: reports: Reviewed and negative GI: reports: Abdominal Pain (mild pain when vomiting across upper abdomen), Nausea, Vomiting : reports: Now EGA (16 weeks). denies: Dysuria, Frequency, Vaginal bleeding Musculoskeletal: denies: Back pain PD PAST MEDICAL HISTORY - Past Medical History Cardiovascular: None Respiratory: None Neuro: None Endocrine/Autoimmune: None GI: Cholelithiasis, Other HEENT: Other Derm: None - Past Surgical History Past Surgical History: Yes General: Cholecystectomy - Present Medications Home Medications: Ambulatory Orders Medication Instructions Recorded Confirmed Metoclopramide [Reglan] 10 mg PO Q6H PRN #14 tablet 07/04/20 Ondansetron Odt [Zofran] 4 mg TL Q6H PRN #10 tablet 07/04/20 Promethazine [Phenergan] 12.5 mg PO Q6HR 07/04/20 07/04/20 - Allergies Allergies/Adverse Reactions: Allergies Allergy/AdvReac Type Severity Reaction Status Date / Time banana Allergy Hives Verified 07/04/20 04:39 kiwi Allergy Anaphylaxis Verified 07/04/20 04:39 red (food color) Allergy Respiratory Verified 07/04/20 04:39 bees Allergy Unknown Uncoded 07/26/19 08:30 - Social History Does the pt smoke?: Yes Smoking Status: Current every day smoker Does the pt drink ETOH?: Yes Does the pt have substance abuse?: No - Immunizations Immunizations are current?: Yes - POLST Patient has POLST: No PD ED PE NORMAL - Vitals Vital signs reviewed: Yes - General General: Alert and oriented X 3, No acute distress, Well developed/nourished - HEENT HEENT: Other (pasty/tacky mucous membranes) - Neck Neck: Supple, no meningeal sign - Cardiac Cardiac: RRR, No murmur - Respiratory Respiratory: No respiratory distress, Clear bilaterally - Abdomen Abdomen: Soft, Non tender - Back Back: No CVA TTP Results - Vitals Vitals: Vital Signs - 24 hr 07/04/20 09:23 Temperature 36.5 C Heart Rate 72 Respiratory 18 Rate Blood Pressure 120/79 O2 Saturation 99 Oxygen O2 Source Room air - Labs Labs: Laboratory Tests 07/04/20 07/04/20 07/04/20 04:00 04:00 06:50 WBC 8.2 RBC 4.25 Hgb 13.8 Hct 39.5 MCV 92.9 MCH 32.5 H MCHC 34.9 RDW 13.5 Plt Count 235 MPV 9.8 Neut # (Auto) 5.3 Lymph # (Auto) 2.2 [place] # (Auto) 0.6 Eos # (Auto) 0.1 Baso # (Auto) 0.0 Absolute Nucleated RBC 0.00 Nucleated RBC % 0.0 Sodium 135 Potassium 3.1 L Chloride 104 Carbon Dioxide 20 L Anion Gap 11.0 BUN < 5 L Creatinine 0.5 Estimated GFR (MDRD) 143 Glucose 98 Calcium 9.1 Total Bilirubin 0.9 AST 12 ALT 10 Alkaline Phosphatase 45 Total Protein 6.7 Albumin 3.5 Globulin 3.2 Albumin/Globulin Ratio 1.1 Lipase 23 Urine Color DARK YELLOW Urine Clarity HAZY Urine pH 6.5 Ur Specific [place] 1.025 Urine Protein NEGATIVE Urine Glucose (UA) NEGATIVE Urine Ketones >=80 H Urine Occult Blood NEGATIVE Urine Nitrite NEGATIVE Urine Bilirubin NEGATIVE Urine Urobilinogen 1 (NORMAL) Ur Leukocyte Esterase TRACE H Urine RBC 0-5 Urine WBC 6-10 H Ur Squamous Epith Cells MANY Squamous H Amorphous Sediment Few Urine Bacteria Many H Urine Mucus Marked Strands Ur Microscopic Review INDICATED Urine Culture Comments NOT INDICATED PD MEDICAL DECISION MAKING - ED course Complexity details: reviewed results, re-evaluated patient, considered differential, d/w patient ED course: given 1 liter IV NS and 8mg IV zofran. She reported feeling somewhat better with these interventions. Blood tests are reassuring although mild hypokalemia not ed. Given PO KCL (both to replete potassium as well as see if she could tolerate minimal PO intake). Unfortunately, she vomited twice soon after this was given. I discussed this case with Dr. Amaro; she recommends second liter IV fluids and IV reglan and then reassess. These interventions were undertaken and patient reports feeling much better. I discussed option of d/c vs. trying another PO challenge. She says she feels well and prefers d/c home, will return if prescribed antinauseants do not control any recurrence of her symptoms. Departure - Departure Disposition: Home, Self Care Clinical Impression: Vomiting during Condition: Good Instructions: ED Preg Morning Sickness, ED Nausea Vomiting Follow-Up: Mame Amaro MD [Provider Admit Priv/Credential] - Prescriptions: Metoclopramide [Reglan] 10 mg PO Q6H PRN #14 tablet PRN Reason: Nausea / Vomiting Ondansetron Odt [Zofran] 4 mg TL Q6H PRN #10 tablet PRN Reason: Nausea / Vomiting Comments: You can try the reglan (metoclopromide) in place of the promethazine. You can add the zofran (ondansetron) if the reglan is ineffective after 1 hour. Discharge Date/Time: 07/04/20 09:39
[2020-07-04] MEDS ORDERED: SODIUM CHLORIDE 0.9% 1,000 ML IV STA ×2 (04:24→07:29)
[2020-07-04] MEDS ORDERED: ONDANSETRON 4 MG/2 ML VIAL IVP STA (04:24)
[2020-07-04 04:28] LABS: BASOPHILS % (AUTO) 0.4 %; EOSINOPHILS # (AUTO) 0.1 10^3/uL (0.0-0.7); EOSINOPHILS % (AUTO) 0.7 %; HGB - HEMOGLOBIN 13.8 g/dL (12.0-16.0); LYMPHOCYTES # (AUTO) 2.2 10^3/uL (1.5-3.5); LYMPHOCYTES % (AUTO) 26.6 %; MEAN CORPUSCULAR HEMOGLOBIN 32.5 pg (27.0-31.0); MEAN CORPUSCULAR HGB CONC 34.9 g/dL (32.0-36.0); MEAN CORPUSCULAR VOLUME 92.9 fL (81.0-99.0); MEAN PLATELET VOLUME 9.8 fL (7.9-10.8); MONOCYTES # (AUTO) 0.6 10^3/uL (0.0-1.0); MONOCYTES % (AUTO) 7.4 %; NEUTROPHILS # (AUTO) 5.3 10^3/uL (1.5-6.6); NEUTROPHILS % (AUTO) 64.7 %; PLT - PLATELET COUNT 235 10^3/uL (130-450); RED BLOOD COUNT 4.25 10^6/uL (4.20-5.40); RED CELL DISTRIBUTION WIDTH 13.5 % (12.0-15.0); WHITE BLOOD COUNT 8.2 x10^3/uL (4.8-10.8)
[2020-07-04 04:43] LABS: ALBUMIN 3.5 g/dL (3.2-5.5); ALBUMIN/GLOBULIN RATIO 1.1 (1.0-2.2); ALKALINE PHOSPHATASE 45 IU/L (42-121); ALT ALANINE AMINOTRANSFERASE 10 IU/L (10-60); AST ASPARTATE AMINOTRANSFERASE 12 IU/L (10-42); BILIRUBIN,TOTAL 0.9 mg/dL (0.2-1.0); BUN - BLOOD UREA NITROGEN < 5 mg/dL (6-20); CALCIUM 9.1 mg/dL (8.5-10.3); CARBON DIOXIDE - CO2 20 mmol/L (21-32); CHLORIDE 104 mmol/L (101-111); CREATININE 0.5 mg/dL (0.4-1.0); GLUCOSE 98 mg/dL (70-100); LIPASE 23 U/L (22-51); SODIUM 135 mmol/L (135-145); TOTAL PROTEIN 6.7 g/dL (6.7-8.2)
[2020-07-04] MEDS ORDERED: POTASSIUM CHLORIDE 20 MEQ TABLET PO STA (06:29)
[2020-07-04 07:04] LABS: GLUCOSE, URINE (UA) NEGATIVE (NEGATIVE); KETONES,URINE (UA) >=80 mg/dL (NEGATIVE); LEUKOCYTE ESTERASE, URINE TRACE (NEGATIVE); NITRITE,URINE NEGATIVE (NEGATIVE); OCCULT BLOOD,URINE NEGATIVE (NEGATIVE); PH,URINE 6.5 PH (5.0-7.5); PROTEIN,URINE NEGATIVE (NEGATIVE); UROBILINOGEN,URINE 1 (NORMAL) E.U./dL (NORMAL)
[2020-07-04 07:26] LABS: BILIRUBIN,URINE NEGATIVE (NEGATIVE); CLARITY,URINE HAZY (CLEAR); ICTOTEST,URINE NEGATIVE
[2020-07-04 07:27] LABS: AMORPHOUS SEDIMENT,UR Few /LPF; BACTERIA,URINE Many /HPF (None Seen); MUCUS,URINE Marked Strands; RBC,URINE 0-5 /HPF (0-5); SQUAMOUS EPITHELIAL CELL,UR MANY Squamous (<= Few)
[2020-07-04] MEDS ORDERED: METOCLOPRAMIDE 10 MG/2 ML VIAL IVP STA (07:29)
[2020-07-04 09:24] VITALS: BP 120/79
== END 2020-07-04 09:39 | disposition home or self-care (01) ==
LOC: ED 03:38
DX: O21.1 Hyperemesis gravidarum with metabolic disturbance (principal); O99.332 Smoking (tobacco) complicating pregnancy, second trimester; Z3A.16 16 weeks gestation of pregnancy
CPT/HCPCS: 36415; 80053; 81001; 83690; 85025; 96374; 96375; 99283; 99284; A9270; J2765; 81003; 87086

== ENCOUNTER 2020-07-27 11:44 | Outpatient (CLI) | payer MEDICAID ==
--- NOTE | 2020-07-27 15:13 | Ultrasound Report ---
PROCEDURE: OB Detailed Eval INDICATIONS: SCREENING OUTSIDE/PRIOR DATING DATA: Last menstrual period (LMP): 03/09/2020. LMP-based estimated date of delivery (ILANA): 12/14/2020. First dating scan (date and location): 05/05/2020. Estimated date of delivery (ILANA) from first dating scan: 12/16/2020. (Provider stated 12/14/2020). TECHNIQUE: Real-time scanning was performed of the fetus, with image documentation and biometric measurements. Endovaginal scanning: Not performed. COMPARISON: 05/05/2020. FINDINGS: General: A single living intrauterine gestation is present. Presentation: Variable Placenta: Placental position is posterior, without previa. Amniotic fluid index: 11.5 cm, normal for gestational age. heart rate: 153 beats per minute. Maternal cervical canal: 4.5 cm long; normal length is 2.5 cm or more. biometrics: Biparietal diameter: 4.56 cm, 19 weeks 5 days Head circumference: 17.23 cm, 19 weeks 6 days Abdominal circumference: 14.9 cm, 20 weeks 1 day Femur length: 3.22 cm, 20 weeks 0 days Estimated gestational age from initial scan: 20 weeks 0 days Composite gestational age from present scan: 20 weeks 0 days Estimated weight and percentile: 330 g, 49th percentile Measurement variability in biometric dating: +/- 10 days from 12-20 weeks gestation, +/- 2 weeks from 20-30 weeks gestation, +/- 3 weeks at 30 weeks gestation or later. Anatomic survey: Neuro: Ventricles are normal at less than 10 mm. Cisterna magna is normal at 3-11 mm. Cerebellum i s normal in size and morphology. Nuchal skin fold: Normal at less than 6 mm between 14 and 20 weeks gestational age. Face: Nose and lips, facial profile are normal. Spine: No evidence for spina bifida. Heart: 4-chambered heart is present, with normal ventricular outflow tracts. Diaphragm: Diaphragm is intact. Stomach: Left-sided stomach is present. Kidneys: No hydronephrosis. Normal is less than 5 mm in 2nd trimester, less than 7 mm in 3rd trimester. Cord: 3 vessel cord has orthotopic insertion. Bladder: Normal in size. Extremities: All 4 extremities are visualized. IMPRESSION: 1. Krishnamurthy living intrauterine at 20 weeks 0 days based on today's ultrasound. This is co ncordant with the prior dating. There is expected interval growth. 2. Normal placenta and amniotic fluid. 3. Normal and complete anatomic survey. Reviewed by: Ismael Almanza MD on 07/27/2020 2:12 PM [facility] Approved by: Ismael Almanza MD on 07/27/2020 2:12 PM [facility] Station ID: [id number]
== END 2020-07-27 11:45 | disposition home or self-care (01) ==
LOC: DI 11:44
PROVIDERS: ATTEND Obstetrics & Gynecology
DX: Z34.80 Encounter for supervision of other normal pregnancy, unspecified trimester (principal)

== ENCOUNTER 2020-09-15 15:02 | Outpatient (CLI) | payer MEDICAID ==
[2020-09-15 16:15] LABS: HGB - HEMOGLOBIN 12.4 g/dL (12.0-16.0); MEAN CORPUSCULAR HEMOGLOBIN 32.2 pg (27.0-31.0); MEAN CORPUSCULAR HGB CONC 34.2 g/dL (32.0-36.0); MEAN CORPUSCULAR VOLUME 94.3 fL (81.0-99.0); MEAN PLATELET VOLUME 8.8 fL (7.9-10.8); RED BLOOD COUNT 3.85 10^6/uL (4.20-5.40); WHITE BLOOD COUNT 7.3 x10^3/uL (4.8-10.8)
== END 2020-09-15 15:03 | disposition home or self-care (01) ==
LOC: LAB 15:02
PROVIDERS: ATTEND Nurse Practitioner Obstetrics & Gynecology
DX: Z34.80 Encounter for supervision of other normal pregnancy, unspecified trimester (principal)
CPT/HCPCS: 36415; 82950; 85027

== ENCOUNTER 2020-11-17 17:11 | Outpatient (CLI) | payer MEDICAID ==
[2020-11-18 22:26] LABS: CHLAMYDIA TRACHOMATIS DNA NEGATIVE (NEGATIVE); NEISSERIA GONORRHOEAE DNA NEGATIVE (NEGATIVE); TRICHOMONAS VAGINALIS DNA NEGATIVE (NEGATIVE)
== END 2020-11-17 23:59 | disposition home or self-care (01) ==
LOC: LAB.R 17:11
PROVIDERS: ATTEND Obstetrics & Gynecology
DX: Z36.85 Encounter for antenatal screening for Streptococcus B (principal)
CPT/HCPCS: 87491; 87591; 87661; 87797

== ENCOUNTER 2020-11-28 15:07 | Outpatient (CLI) | payer MEDICAID ==
[2020-11-28 15:25] VITALS: BP 114/57
[2020-11-28 16:16] LABS: RUPTURE OF MEMBRANES PLUS NEGATIVE (NEGATIVE)
--- NOTE | 2020-11-28 17:29 | PROVIDER PROGRESS NOTE ---
- HPI Current : Current EDU 12/14/20 Gestation 37 Weeks and 5 Days 3 Para 1 Vital Signs Temperature 97.6 F L 11/28/20 15:21 Heart Rate 84 11/28/20 15:21 Blood Pressure 114/57 L 11/28/20 15:21 O2 Saturation 98 11/28/20 15:21 Temperature 97.6 F L 11/28/20 15:21 Heart Rate 84 11/28/20 15:21 Respiratory Rate Blood Pressure 114/57 L 11/28/20 15:21 O2 Saturation 98 11/28/20 15:21 - Procedures NST Procedure: NST Procedure Start Date 11/28/20 Start Time 15:20 Stop Time 16:30 Vibroacoustic Stimulation Used No Patient States Movement Yes Procedure Details: Pt c/o leaking of fluid, copious and it happened a smaller amount again. Has been dry while driving to the hospital. No bleeding, no significant contractions. AVSS Alert, NAD EFG normal, vagina pink with leukorrhea, cervix appears closed, negative pooling, neg valsalva, neg nitrizine, neg ferning, neg ROM+ test. Baseline: BPM 150 Variability: Moderate Accelerations: Present Decelerations: Absent Trends in FHR over time: no changes Hamel contractions in 10 minutes: 0 Impression: reactive Category 1 NST A/P: 30yo P1 at 37w with leukorrhea of , no evidence of rupture of membranes. Labor precautions given. Routine f/u in clinic this week.
== END 2020-11-28 17:15 | disposition home or self-care (01) ==
LOC: WFO 15:07 → FBP 15:09 → WFO 17:15
PROVIDERS: ATTEND Obstetrics & Gynecology
DX: O26.893 Other specified pregnancy related conditions, third trimester (principal); N89.8 Other specified noninflammatory disorders of vagina; Z3A.37 37 weeks gestation of pregnancy
CPT/HCPCS: 59025; 84112; 99213

== ENCOUNTER 2020-12-08 08:34 | Inpatient (IN) | payer MEDICAID ==
[2020-12-08] MEDS ORDERED: ONDANSETRON 4 MG/2 ML VIAL IVP PRN ×2 (09:17→20:24)
[2020-12-08] MEDS ORDERED: ACETAMINOPHEN 325 MG TABLET PO PRN (09:17)
[2020-12-08] MEDS ORDERED: METOCLOPRAMIDE 10 MG TABLET PO PRN (09:17)
[2020-12-08] MEDS ORDERED: miSOPROStoL 200 MCG TABLET PR ONE (09:17)
[2020-12-08] MEDS ORDERED: CARBOPROST TROMETHAMINE 250 MCG/ML AMP IM PRN ×2 (09:17)
[2020-12-08] MEDS ORDERED: miSOPROStoL 200 MCG TABLET BC PRN (09:17)
[2020-12-08] MEDS ORDERED: miSOPROStoL 200 MCG TABLET PR PRN (09:17)
[2020-12-08] MEDS ORDERED: SODIUM CHLORIDE FLUSH 0.9% 10 ML SYRINGE IVP PRN (09:17)
[2020-12-08] MEDS ORDERED: TRANEXAMIC ACID IN NACL 1,000 MG/100 ML BAG IV PRN (09:17)
[2020-12-08] MEDS ORDERED: ONDANSETRON ODT 4 MG TABLET TL PRN (09:17)
[2020-12-08] MEDS ORDERED: TERBUTALINE 1 MG/ML VIAL SUBQ PRN (09:17)
[2020-12-08] MEDS ORDERED: hydrALAZINE INJ 20 MG/ML VIAL IVP PRN ×2 (09:17)
[2020-12-08] MEDS ORDERED: METHYLERGONOVINE 0.2 MG/ML VIAL IM PRN ×2 (09:17)
[2020-12-08] MEDS ORDERED: OXYTOCIN/SODIUM CHLORIDE 500 ML IV PRN ×2 (09:17)
[2020-12-08] MEDS ORDERED: NIFEdipine 10 MG CAPSULE PO PRN (09:17)
[2020-12-08] MEDS ORDERED: LIDOCAINE-MPF 1% 30 ML VIAL ID PRN (09:17)
[2020-12-08] MEDS ORDERED: OXYTOCIN 10 UNIT/ML VIAL IM PRN (09:17)
[2020-12-08] MEDS ORDERED: fentaNYL 100 MCG/2 ML VIAL IVP PRN (09:17)
[2020-12-08] MEDS ORDERED: LABETALOL 20 MG/4 ML SYRINGE IVP PRN ×3 (09:17)
[2020-12-08] MEDS ORDERED: METOCLOPRAMIDE 10 MG/2 ML VIAL IVP PRN ×2 (09:17→20:24)
[2020-12-08] MEDS ORDERED: miSOPROStoL 100 MCG TABLET BC SCH (09:19)
[2020-12-08 09:42] LABS: BASOPHILS % (AUTO) 0.3 %; EOSINOPHILS # (AUTO) 0.1 10^3/uL (0.0-0.7); EOSINOPHILS % (AUTO) 0.8 %; HCT - HEMATOCRIT 36.1 % (37.0-47.0); HGB - HEMOGLOBIN 12.1 g/dL (12.0-16.0); LYMPHOCYTES # (AUTO) 1.7 10^3/uL (1.5-3.5); LYMPHOCYTES % (AUTO) 23.7 %; MEAN CORPUSCULAR HEMOGLOBIN 29.7 pg (27.0-31.0); MEAN CORPUSCULAR HGB CONC 33.5 g/dL (32.0-36.0); MEAN CORPUSCULAR VOLUME 88.5 fL (81.0-99.0); MEAN PLATELET VOLUME 9.4 fL (7.9-10.8); MONOCYTES # (AUTO) 0.6 10^3/uL (0.0-1.0); MONOCYTES % (AUTO) 8.1 %; NEUTROPHILS # (AUTO) 4.8 10^3/uL (1.5-6.6); NEUTROPHILS % (AUTO) 66.4 %; PLT - PLATELET COUNT 263 10^3/uL (130-450); RED BLOOD COUNT 4.08 10^6/uL (4.20-5.40); RED CELL DISTRIBUTION WIDTH 13.5 % (12.0-15.0); WHITE BLOOD COUNT 7.2 x10^3/uL (4.8-10.8)
[2020-12-08] MEDS: miSOPROStoL 100 MCG TABLET BC SCH ×2 (09:49→13:55)
--- NOTE | 2020-12-08 11:58 | ANESTHESIA ---
Pre-Anesthesia VS, & Labs - Diagnosis term labor, IUP - Procedure epidural for Vital Signs: Temp Pulse Resp BP Pulse Ox 36.6 C 86 16 117/65 12/08/20 08:50 12/08/20 08:50 12/08/20 08:50 12/08/20 08:50 Height: 5 ft 9 in Weight (kg): 102.512 kg Body Mass Index: 33.3 BMI Classification: Obese - NPO Last Fluid Intake: t/o day Last Food Intake: t/o day - Is Patient ?: Yes - Lab Results Current Lab Results: Laboratory Tests 12/08/20 09:30: Blood Type O POSITIVE, Antibody Screen NEGATIVE 12/08/20 09:30: WBC 7.2, RBC 4.08 L, Hgb 12.1, Hct 36.1 L, MCV 88.5, MCH 29.7, MCHC 33.5, RDW 13.5, Plt Count 263, MPV 9.4, Neut # (Auto) 4.8, Lymph # (Auto) 1.7, [place] # (Auto) 0.6, Eos # (Auto) 0.1, Baso # (Auto) 0.0, Absolute Nucleated RBC 0.00, Nucleated RBC % 0.0 Lab results reviewed: Yes Fish Bones: 12/08/20 09:30 Home Medications and Allergies Active Medications Acetaminophen (Acetaminophen 325 Mg Tablet) 650 mg PO Q6H PRN PRN Reason: Pain or Fever Carboprost Tromethamine (Carboprost Tromethamine 250 Mcg/Ml Amp) 250 mcg IM Q15M PRN PRN Reason: Step 4: Hemorrhage protocol Stop: 12/13/20 09:18 Carboprost Tromethamine (Carboprost Tromethamine 250 Mcg/Ml Amp) 250 mcg IM ONCE PRN PRN Reason: Post- Hemorrhage Stop: 12/13/20 09:16 Fentanyl (Fentanyl 100 Mcg/2 Ml Vial) 50 mcg IVP Q1H PRN PRN Reason: PAIN Hydralazine HCl (Hydralazine Inj 20 Mg/Ml Vial) 5 - 20 mg IVP Q20M PRN; Protocol PRN Reason: SBP >160 or DBP >110 Hydralazine HCl (Hydralazine Inj 20 Mg/Ml Vial) 10 mg IVP .ONCE PRN; Protocol PRN Reason: Step 9 of Labetalol protocol Stop: 12/13/20 09:21 Oxytocin/Sodium Chloride (Pitocin/Sodium Chloride) 500 mls @ 999 mls/hr IV PRN PRN; Protocol PRN Reason: POST- HEMORR PREVENTION Stop: 12/13/20 09:18 Tranexamic Acid (Tranexamic 1,000 Mg/100ml-Nacl) 1,000 mg in 100 mls @ 600 mls/hr IV .ONCE PRN PRN Reason: EBL >1200mL and within 3hr Stop: 12/13/20 09:18 Oxytocin/Sodium Chloride (Pitocin/Sodium Chloride) 500 mls @ 1 mls/hr IV TITR REY; Protocol Oxytocin/Sodium Chloride (Pitocin/Sodium Chloride) 500 mls @ 999 mls/hr IV PRN PRN; Protocol PRN Reason: POST- HEMORR PREVENTION Lactated Ringer's (Lr) 1,000 mls @ 100 mls/hr IV .Q10H REY Labetalol HCl (Labetalol 20 Mg/4 Ml Syringe) 20 - 80 mg IVP Q10M PRN; Protocol PRN Reason: SBP >160 or DBP >110 Labetalol HCl (Labetalol 20 Mg/4 Ml Syringe) 20 mg IVP .ONCE PRN; Protocol PRN Reason: Step 9 of nifedipine protocol Stop: 12/13/20 09:21 Labetalol HCl (Labetalol 20 Mg/4 Ml Syringe) 40 mg IVP .ONCE PRN; Protocol PRN Reason: Step 9 of hydrALAZine protocol Stop: 12/13/20 09:21 Lidocaine HCl (Lidocaine-Mpf 1% 30 Ml Vial) 30 ml ID .ONCE PRN PRN Reason: PERINEAL REPAIR Stop: 12/13/20 09:18 Methylergonovine Maleate (Methylergonovine 0.2 Mg/Ml Vial) 0.2 mg IM .ONCE PRN PRN Reason: Step 2: Hemorrhage protocol Stop: 12/13/20 09:18 Methylergonovine Maleate (Methylergonovine 0.2 Mg/Ml Vial) 0.2 mg IM Q4HR PRN PRN Reason: Post- Hemorrhage Metoclopramide HCl (Metoclopramide 10 Mg/2 Ml Vial) 5 mg IVP Q6H PRN PRN Reason: Nausea / Vomiting Metoclopramide HCl (Metoclopramide 10 Mg Tablet) 10 mg PO Q6H PRN PRN Reason: Nausea / Vomiting Misoprostol (Misoprostol 100 Mcg Tablet) 50 mcg BC Q4H REY Last Admin: 12/08/20 09:49 Dose: 50 mcg Documented by: Misoprostol (Misoprostol 200 Mcg Tablet) 800 mcg BC .ONCE PRN PRN Reason: Step 3: Hemorrhage protocol Stop: 12/13/20 09:18 Misoprostol (Misoprostol 200 Mcg Tablet) 800 mcg AL ONCE PRN PRN Reason: Post- Hemorrhage Stop: 12/13/20 09:16 Nifedipine (Nifedipine 10 Mg Capsule) 10 - 20 mg PO Q20M PRN; Protocol PRN Reason: SBP >160 or DBP >110 Ondansetron HCl (Ondansetron 4 Mg/2 Ml Vial) 4 mg IVP Q4HR PRN PRN Reason: Nausea / Vomiting Ondansetron HCl (Ondansetron Odt 4 Mg Tablet) 4 mg TL Q4HR PRN PRN Reason: Nausea / Vomiting Oxytocin (Oxytocin 10 Unit/Ml Vial) 10 unit IM .ONCE PRN PRN Reason: Step one: If no IV access Stop: 12/13/20 09:18 Sodium Chloride (Sodium Chloride Flush 0.9% 10 Ml Syringe) 10 ml IVP 0100,0900,1700 REY Sodium Chloride (Sodium Chloride Flush 0.9% 10 Ml Syringe) 10 ml IVP PRN PRN PRN Reason: NEEDED PER PROVIDER ORDERS Terbutaline Sulfate (Terbutaline 1 Mg/Ml Vial) 0.25 mg SUBQ Q1H PRN PRN Reason: tachysystole Promethazine [Phenergan] 12.5 mg PO Q6HR 07/04/20 Allergies/Adverse Reactions: Allergies Allergy/AdvReac Type Severity Reaction Status Date / Time banana Allergy Hives Verified 07/04/20 04:39 kiwi Allergy Anaphylaxis Verified 07/04/20 04:39 red (food color) Allergy Respiratory Verified 07/04/20 04:39 bees Allergy Unknown Uncoded 07/26/19 08:30 Anes History & Medical History - Anesthetic History Anesthesia Complications: reports: No previous complications Family history of Anesthesia Complications: Denies Family history of Malignant Hyperthermia: Denies - Medical History Cardiovascular: reports: None Pulmonary: reports: None Gastrointestinal: reports: Cholelithiasis, Other Urinary: reports: None Neuro: reports: None Musculoskeletal: reports: None Endocrine/Autoimmune: reports: None Blood Disorders: reports: None Skin: reports: None Smoking Status: Former smoker - Surgical History General: reports: Cholecystectomy Exam General: Alert, Oriented x3, Cooperative Dental: WNL Mouth Openin Fingerbreadth Neck Mobility: Normal Mallampati classification: II Thyromental Distance: 4-6 cm Respiratory: Lungs clear, Normal breath sounds, No respiratory distress Cardiovascular: Regular rate Neurological: Normal speech Mental/Cognitive Status: Alert/Oriented X3, Normal for patient Plan Anesthesia Type: Epidural Consent for Procedure(s) Verified and Reviewed: Yes Code Status: Attempt Resuscitation ASA classification: 2-Mild systemic disease Is this case an emergency?: No
[2020-12-08] MEDS ORDERED: ROPIVACAINE 0.2% 200 MG/100 ML BAG EP ONE (19:45)
[2020-12-08] MEDS ORDERED: ROPIVACAINE 0.2% 200 MG/100 ML BAG EP PRN (20:24)
[2020-12-08] MEDS ORDERED: ePHEDrine 50 MG/ML VIAL IVP PRN (20:24)
[2020-12-08] MEDS ORDERED: NALBUPHINE 10 MG/ML AMP IVP PRN (20:24)
[2020-12-08] MEDS ORDERED: NALOXONE 0.4 MG/ML VIAL IVP PRN (20:24)
[2020-12-08] MEDS ORDERED: diphenhydrAMINE INJ 50 MG/ML VIAL IVP PRN (20:24)
[2020-12-08] MEDS: OXYTOCIN/SODIUM CHLORIDE 500 ML IV SCH (21:32)
[2020-12-08] MEDS: LACTATED RINGERS 1,000 ML IV SCH (21:38)
--- NOTE | 2020-12-08 22:02 | HISTORY & PHYSICAL EXAMINATION ---
Admit History - Visit Reason Visit Reason: Other (elective induction at 39+1 wga) - : 3 Parity: 1 Care: positive: Other, None Smoking Status: Former smoker - Mother's Labs Mother's Blood Type: positive: O Mother's RH: positive: Positive GBS: positive: Group B Step Negative Rubella Status: positive: Immune - Other Maternal History Other Maternal History: Patient is a 30 yo at 39+1 wga here for elective induction of labor. has been generally uncomplicated. Desires elective induction. R/B/A were reviewed in clinic and consents were singed on 12/01/20. Hx of one prior . complicated by anxiety. PMH: Depression/ Anxiety/ ADHD PSH: Cholecystectomy 2009 OBHX: Her last Pap smear was 4 years ago. 05/11/20 pap ASCUS/HPV+ She had an uncomplicated 10 years ago. No history of STIs and no history of genital herpes. Partner also denies genital herpes. FH: adopted PNC: Dating: LMP 03/09/2020 gives ILANA of 12/14/2020. US on 05/05/2020 at [id number] gives ILANA of 12/16/2020; CWD. IOL consents signed 12/01/20 ANXIETY: Did not address anxiety today but states she is doing well. O pos/Rub imm GENETICS: Saw MFM. NIPT 46 XY and SMN1 wnl Tdap 09/22/2020 Influenza: complete FAS 3VC, posterior, CL 4.5, FAS wnl Glucola 137 HSV: Denies for partner and self. GBS: neg Breast pump Rx: provided. [employer] is requesting more information MOD: Anticipate . Baby BOY: Andrzej. FOB: Aaron. (He has a son, and she has a son, first son together) History of PPD: Follow up closely . Pap was ASCUS HPV positive, negative for 16 and 18. Updated ASCCP guidsohail recommend repeat testing in one year. We had otherwise been planning colposcopy CONTRACEPTION: TBD) Meds/Allgy - Home Medications Home Medications: Ambulatory Orders Medication Instructions Recorded Confirmed Metoclopramide [Reglan] 10 mg PO Q6H PRN #14 tablet 07/04/20 Ondansetron Odt [Zofran] 4 mg TL Q6H PRN #10 tablet 07/04/20 Promethazine [Phenergan] 12.5 mg PO Q6HR 07/04/20 07/04/20 - Allergies Allergies/Adverse Reactions: Allergies Allergy/AdvReac Type Severity Reaction Status Date / Time banana Allergy Hives Verified 07/04/20 04:39 kiwi Allergy Anaphylaxis Verified 07/04/20 04:39 red (food color) Allergy Respiratory Verified 07/04/20 04:39 bees Allergy Unknown Uncoded 07/26/19 08:30 Review of Systems - Other Findings Other Findings: As per HPI, otherwise remaining systems are negative. Physical - Abdominal Exam Vital Signs: Temp Pulse Resp BP Pulse Ox 97.7 F 89 18 110/54 L 97 12/08/20 16:47 12/08/20 16:47 12/08/20 16:47 12/08/20 16:47 12/08/20 16:47 Contraction Frequency (min/apart): irritable - Monitoring Heart Rate Baseline: 125 mod car 15x15 accels no decels Strip Review: positive: Category I - Presentation Presentation: positive: Vertex - Vaginal Exam Membranes: positive: Membranes intact Dilation (in cm): 1.5 Effacement (%): 50 Station: positive: -3 Cervical Position: positive: Midposition - Other Notes Labor Progress Note/Additional Text: GEN: NAD HEENT: NCAT CV: RRR RESP: CTAB ABD: gravid, S&NT EXT: WWP PSYCH: appropriate affect NEURO: A&O Plan for Labor - Plan For Labor I expect patient to be DC'd or transferred within 96 hours.: Yes Plan for Labor: 30 yo at 39+2 wga here for elective induction of labor IOL: Unfavorable cervix Desires aggressive induction process Misoprostol 50 mcg BC Q4H Orr balloon discussed Pitocin when favorable Consider AROM as appropriate FWB: Vertex, well grown, GBS neg, Cat I tracing -CEFM PAIN: Desire epidural Fentanyl 50 mcg IV Q1H prn pain to max dose of 200 mcg and not to be given after 7 cm Nitrous oxide as desired Epidural as requested Admit to observation while underoging cervical ripening. Change to inpatient with ROM, start of pitocin, active labor, or decision to proceed with Anticipate
--- NOTE | 2020-12-08 22:12 | PROVIDER PROGRESS NOTE ---
Subjective - Prog Note Date Prog Note Date: 12/08/20 Prog Note Time: 17:54 - Subjective Subjective: LATE ENTRY: Patient had received 2 doses of miso 50 mcg BC Feeling contractions Wants to move forward with Orr balloon placement VS wnl SVE 2-3/70/-2 Cook Orr placed with 60 cc NS in each balloon Cat I tracing -OK to start low dose pitocin once patient has adjusted to ballon -GBS negative, abx not indicated -Anticipate Objective - Vital Signs/Intake & Output Vital Signs: Vital Signs x48h Temp Pulse Resp BP Pulse Ox 12/08/20 16:47 97.7 F 89 18 110/54 L 97 - Lab Results Fish Bones: 12/08/20 09:30 Other Labs: Lab Results x24hrs 12/08/20 12/08/20 Range/Units 09:30 09:30 WBC 7.2 (4.8-10.8) x10^3/uL RBC 4.08 L (4.20-5.40) 10^6/uL Hgb 12.1 (12.0-16.0) g/dL Hct 36.1 L (37.0-47.0) % MCV 88.5 (81.0-99.0) fL MCH 29.7 (27.0-31.0) pg MCHC 33.5 (32.0-36.0) g/dL RDW 13.5 (12.0-15.0) % Plt Count 263 (130-450) 10^3/uL MPV 9.4 (7.9-10.8) fL Neut # (Auto) 4.8 (1.5-6.6) 10^3/uL Lymph # (Auto) 1.7 (1.5-3.5) 10^3/uL [place] # (Auto) 0.6 (0.0-1.0) 10^3/uL Eos # (Auto) 0.1 (0.0-0.7) 10^3/uL Baso # (Auto) 0.0 (0.0-0.1) 10^3/uL Absolute Nucleated RBC 0.00 x10^3/uL Nucleated RBC % 0.0 /100WBC Blood Type O POSITIVE Antibody Screen NEGATIVE
--- NOTE | 2020-12-08 22:13 | PROVIDER PROGRESS NOTE ---
Subjective - Prog Note Date Prog Note Date: 12/08/20 Prog Note Time: 21:20 - Subjective Subjective: Received update that Orr balloon had fallen out Patient uncomfortable and requests epidural Ok for epidural Start pitocin Objective - Vital Signs/Intake & Output Vital Signs: Vital Signs x48h Temp Pulse Resp BP Pulse Ox 12/08/20 16:47 97.7 F 89 18 110/54 L 97 - Lab Results Fish Bones: 12/08/20 09:30 Other Labs: Lab Results x24hrs 12/08/20 12/08/20 Range/Units 09:30 09:30 WBC 7.2 (4.8-10.8) x10^3/uL RBC 4.08 L (4.20-5.40) 10^6/uL Hgb 12.1 (12.0-16.0) g/dL Hct 36.1 L (37.0-47.0) % MCV 88.5 (81.0-99.0) fL MCH 29.7 (27.0-31.0) pg MCHC 33.5 (32.0-36.0) g/dL RDW 13.5 (12.0-15.0) % Plt Count 263 (130-450) 10^3/uL MPV 9.4 (7.9-10.8) fL Neut # (Auto) 4.8 (1.5-6.6) 10^3/uL Lymph # (Auto) 1.7 (1.5-3.5) 10^3/uL [place] # (Auto) 0.6 (0.0-1.0) 10^3/uL Eos # (Auto) 0.1 (0.0-0.7) 10^3/uL Baso # (Auto) 0.0 (0.0-0.1) 10^3/uL Absolute Nucleated RBC 0.00 x10^3/uL Nucleated RBC % 0.0 /100WBC Blood Type O POSITIVE Antibody Screen NEGATIVE
--- NOTE | 2020-12-08 23:49 | PROVIDER PROGRESS NOTE ---
Subjective - Prog Note Date Prog Note Date: 12/08/20 Prog Note Time: 23:47 - Subjective Subjective: Comfortable with epidural Pitocin at 4 mU/min Cat I tracing CTX not picking up well SVE /-2 AROM for clear fluid Objective - Vital Signs/Intake & Output Vital Signs: Vital Signs x48h Temp Pulse Resp BP Pulse Ox 12/08/20 16:47 97.7 F 89 18 110/54 L 97 - Lab Results Fish Bones: 12/08/20 09:30 Other Labs: Lab Results x24hrs 12/08/20 12/08/20 Range/Units 09:30 09:30 WBC 7.2 (4.8-10.8) x10^3/uL RBC 4.08 L (4.20-5.40) 10^6/uL Hgb 12.1 (12.0-16.0) g/dL Hct 36.1 L (37.0-47.0) % MCV 88.5 (81.0-99.0) fL MCH 29.7 (27.0-31.0) pg MCHC 33.5 (32.0-36.0) g/dL RDW 13.5 (12.0-15.0) % Plt Count 263 (130-450) 10^3/uL MPV 9.4 (7.9-10.8) fL Neut # (Auto) 4.8 (1.5-6.6) 10^3/uL Lymph # (Auto) 1.7 (1.5-3.5) 10^3/uL [place] # (Auto) 0.6 (0.0-1.0) 10^3/uL Eos # (Auto) 0.1 (0.0-0.7) 10^3/uL Baso # (Auto) 0.0 (0.0-0.1) 10^3/uL Absolute Nucleated RBC 0.00 x10^3/uL Nucleated RBC % 0.0 /100WBC Blood Type O POSITIVE Antibody Screen NEGATIVE
[2020-12-09] MEDS: LACTATED RINGERS 1,000 ML IV SCH ×5 (00:09→16:50)
[2020-12-09] MEDS ORDERED: ePHEDrine 50 MG/ML VIAL IVP ONE (00:29)
[2020-12-09] MEDS ORDERED: SIMETHICONE CHEW 80 MG TABLET PO PRN (02:20)
[2020-12-09] MEDS ORDERED: CALCIUM CARBONATE CHEW 500 MG TABLET PO PRN (02:20)
[2020-12-09] MEDS ORDERED: HYDROCORTISONE 1% CREAM 28 GM TUBE PR PRN (02:20)
--- NOTE | 2020-12-09 02:23 | DELIVERY NOTE ---
Delivery Note - Labor Labor: positive: Induced by oxytocin - Infant Delivery Method Delivery Method: positive: Spontaneous vaginal delivery - Cervical Ripening Method Cervical Ripening Method: positive: Balloon device, Misoprostil, Oxytocin - Presentation Presentation: positive: Vertex, OA - occiput anterior - Nuchal Cord Nuchal Cord: positive: None - Anesthetic Anesthetic Type: - Amniotic Fluid Description Amniotic Fluid Description: positive: Clear - Episiotomy Type Episiotomy Type: positive: None - Laceration Laceration: positive: None, 1st degree - Suture Suture Type: positive: Vicryl Suture Size: positive: 3-0 - Delivery Outcome Delivery Outcome: positive: Livebirth - [place]: positive: Placed in direct skin contact with mother, Suctioned, Bulb syringe, Stimulated, Warmed, [place] used sex: positive: Male - Cord Cord: positive: 3 vessels - Placenta Placenta: positive: Intact, Expressed - Estimated Blood Loss Estimated Blood Loss (in cc): 200 - Post Delivery Events Post Delivery Events: positive: No post delivery events - Delivery Comments (Free Text/Narrative) Delivery Comments (Free Text/Narrative): STAGE I: 30 yo at 39+2 wga admitted on 12/08/20 for elective induction of labor. Initial SVE was 1.5/50/-3. Patient received misoprostol 50 mcg BC x2. A Orr balloon was then placed followed with pitocin to a max dose of 4 mU/min. Epidural for pain management. Artificial rupture of membranes at 22:33 notable for passage of clear fluid. GBS negative; antibiotics were not indicated. Cat I tracing with periods of Cat II tracing throughout Stage I labor. STAGE II: Patient was completed at 00:45 on 12/09/20. She labored down and then started pushing at 1:15. She delivered a vigorous and viable male from direct OA position at 1:32 am, weight and Apgars pending. No nuchal cord. was delivered to maternal chest. Cord clamping was delayed until pulsations ceased. It was then clamped x2 and cut. STAGE III: Placenta was delivered via manual expression at 1:40 am. it was examined and found to be intact. Perineum was examined and found to have a hemostatic first degree laceration. It was repaired, per patient request, with 3-0 Vicryl in the usual sterile fashion in layers. Total EBL was 200 cc. Procedure was well tolerated and without complication.
[2020-12-09] MEDS: IBUPROFEN 600 MG TABLET PO SCH ×4 (04:30→23:29)
[2020-12-09] MEDS: miSOPROStoL 100 MCG TABLET BC SCH ×5 (07:26→18:30)
[2020-12-09] MEDS: SODIUM CHLORIDE FLUSH 0.9% 10 ML SYRINGE IVP SCH ×4 (07:26→18:29)
[2020-12-09] MEDS: ACETAMINOPHEN 500 MG TABLET PO SCH ×3 (07:28→18:29)
[2020-12-09] MEDS: OXYTOCIN/SODIUM CHLORIDE 500 ML IV SCH (16:50)
[2020-12-10] MEDS: ACETAMINOPHEN 500 MG TABLET PO SCH (03:35)
[2020-12-10] MEDS: IBUPROFEN 600 MG TABLET PO SCH (06:15)
--- NOTE | 2020-12-10 10:10 | Discharge Plan ---
Discharge Plan Problem Reviewed?: Yes Disposition: Home, Self Care Condition: Good Prescriptions: Acetaminophen [Acetaminophen Extra Strength] 1,000 mg PO Q8H PRN #60 tablet PRN Reason: Pain Ibuprofen [Motrin] 600 mg PO Q6H PRN #60 tab PRN Reason: Pain Activity Restrictions: Additional Comments Shower Restrictions: No (No tub baths or hot tubs for 4 weeks) Additional Instructions or Follow Up instructions: Nothing in the vagina for 6 weeks: No intercourse, tampons, douching Call for: -Fever greater than 100.5 -Pain that does not improve with pain medication -Heavy bleeding in which you are soaking a pad an hour for 2 hours in a row No Smoking: If you smoke, Please STOP! Call for help. Follow-up with: Tonya Nair MD [Provider Admit Priv/Credential] -
[2020-12-10 10:16] VITALS: BP 101/74
--- NOTE | 2020-12-10 14:13 | Labor Flowsheet ---
Labor Flowsheet Datetime Report Generated by CPN: 12/10/2020 14:12 Datetime: 12/10/2020 10:15 VITAL SIGNS NBP Sys/Arleth/Mean (mmHg): 101 : 74 : 80 Pulse: 94 Datetime: 12/09/2020 15:20 SpO2 (%): 98 Datetime: 12/09/2020 04:20 Epidural Procedure Other: Cath Removed; Cath Intact Datetime: 12/09/2020 02:45 Stage of : Recovery Datetime: 12/09/2020 02:43 Membranes Ruptured Date/Time: 12/08/2020 22:33 Datetime: 12/09/2020 02:30 PAIN Pain Scale: 0 Datetime: 12/09/2020 01:32 ASSESSMENT A Monitor Mode: External US Monitor Interventions for FHR: Ultrasound Adjusted FHR Baseline Rate : 120 FHR Baseline Changes: No Baseline Change Variability: Moderate 6-25 bpm Accelerations: 15X15 Decelerations: Variable Category: Category II Comments: Delivery!! PATIENT CARE Oxygen Method: Room Air Datetime: 12/09/2020 01:30 I/O Interventions: Orr Discontinued Patient Care Comments: 400mls urine Datetime: 12/09/2020 01:25 LaborFlag: Antepartum Datetime: 12/09/2020 01:16 Contraction Comments: pushing w cntxs Pain Coping: Talking Through Contractions; Breathing Through Contractions MATERNAL ASSESSMENT Level of Consciousness: Alert DTR's/Clonus: DTRs 2+ RUQ Epigastric Pain: Denies Comfort Measures: Breathing/Relaxation; Family Support Datetime: 12/09/2020 01:03 Anesthesia Interventions Other: Ephedrine Anesthesia Comments: 5mg Datetime: 12/09/2020 01:01 UTERINE ACTIVITY Monitor Mode: External Monitor Interventions for UA: Sun Adjusted Frequency (min): 2-4 Quality: Strong Duration (sec): 50-70 Pattern: Normal: <= 5 Contractions in 10 Minutes Resting Tone (Palpate): Relaxed Actions for Decelerations: Side to Side Datetime: 12/09/2020 00:44 VAGINAL EXAM Dilatation (cm): 10.0 Station: 1 Vaginal Exam Comments: Exam by Breanne Datetime: 12/09/2020 00:21 Cervix, Consistency: Soft Cervix, Position: Midposition ANESTHESIA Anesthesia Plans: Epidural Datetime: 12/09/2020 00:15 Respirations: 18 Datetime: 12/09/2020 00:11 Headache: Denies Nausea/Vomiting: Present Datetime: 12/09/2020 00:07 Communication Comments: mcsorely at bedside to assess Datetime: 12/08/2020 23:13 Temperature (C): 36.5 Vital Sign Comments: Axillery Pain Presence: None/Denies Pain Type: Pressure Datetime: 12/08/2020 23:11 Anesthesia Level Check: T7 Datetime: 12/08/2020 23:01 MEDICATIONS Pitocin (milliunits): Increased to @ 4 Datetime: 12/08/2020 23:00 Pitocin Checklist: At Least 1 Acceleration of 15 bpm x 15 Seconds in 30 Minutes or Adequate Variabi lity; No More than 1 Late Deceleration Occurred in Past 30 Minutes; No More than 2 Variable Decelerat ions > 60 Seconds in Duration and decreasing >60 bpm in 30 minutes; No More than 5 Uterine Contractio ns in 10 Minutes for any 20 Minute Interval; Uterus Palpates Soft between Contractions COMMUNICATION Communication: Call/Page Placed to Provider Datetime: 12/08/2020 22:32 Membrane Status: Ruptured Membranes Rupture Method: Artificial Amniotic Fluid Color: Clear Amniotic Fluid Amount: Moderate Amniotic Fluid Odor: Normal Membrane Comments: AROM by McSeorely Datetime: 12/08/2020 21:43 Effacement (%): 80 [facility]am by: [facility] Vaginal Bleeding: Normal Show Datetime: 12/08/2020 21:40 Antiemetics/Antacids: Zofran (mg) @ 4 Patient Position/Activity: HOB Lowered; Left Tilt Datetime: 12/08/2020 20:01 Epidural Procedure: Test Dose Datetime: 12/08/2020 19:54 PROCEDURE TIME OUT Procedure Verify: Correct Patient Identity; Correct Side and Site are Marked; Accurate Procedure Co nsent Form; Agreement on Procedure to be Done; Correct Patient Position; Relevant Images and Results are Properly Labeled and Displayed; Addressed Need to Administer Antibiotics or Fluids for Irrigation ; Safety Precautions Based on Patient History or Medication Use Epidural Positioning: Sitting Datetime: 12/08/2020 19:26 Breath Sounds, Left: Clear and Equal Breath Sounds, Right: Clear and Equal Datetime: 12/08/2020 19:17 Pain Location: Abdomen Pain Goal: 0 Pain Assessment Comments: will call OB and C. Quinteros Anesthesia on sharona; Medication Comments: Bolus started/pre anesthesia Datetime: 12/08/2020 19:16 Provider Notified (Name): McSorley OB Datetime: 12/08/2020 19:15 Notification Reason: Status Update Datetime: 12/08/2020 17:54 Temperature Route: Oral Datetime: 12/08/2020 17:40 Analgesics/Sedatives: Fentanyl (mcg) @ 50 Datetime: 12/08/2020 16:59 Pain Relief Measures: Comfort Measures Datetime: 12/08/2020 13:55 Cervical Ripening Agents: Orr Balloon; Cytotec @
--- NOTE | 2020-12-15 15:06 | PROVIDER PROGRESS NOTE ---
Subjective - Prog Note Date Prog Note Date: 12/10/20 Prog Note Time: 10:00 - Subjective Subjective: Late entry Patient is up and ambulating, tolerating po, and voiding. Pain is well managed with pain medications. Doing well. Feels ready for discharge. Objective - Vital Signs/Intake & Output Reviewed Vital Signs: Yes - Objective General Appearance: positive: No acute distress Respiratory: positive: No respiratory distress, Breath sounds nml Cardiovascular: positive: Regular rate & rhythm Abdomen: positive: Non-tender, No distention, Other (FF below umbi) Skin: positive: Color nml Extremities: positive: Non-tender Neurologic/Psychiatric: positive: Oriented x3 - Lab Results Fish Bones: 12/08/20 09:30 Assessment/Plan - Problem List (1) Vaginal delivery Impression: PPD#1: Meeting goals for discharge Routine Dc instructions given
--- NOTE | 2020-12-15 15:07 | DISCHARGE SUMMARY ---
"Discharge Summary Admit Date: 12/08/20 Discharge Date: 12/10/20 Discharging Provider: Joanie Condition at Discharge: Good Discharge Disposition: 01 Home, Self Care - DIAGNOSES Admission Diagnoses: IUP at 39+1 wga Desires elective induction of labor Discharge Diagnoses with Status of Each Condition: Same and delivery of term gestation - HPI History of Present Illness: Patient is a 30 yo admitted at 39+1 wga for elective induction of labor. has been generally uncomplicated. Desires elective induction. R/B/A were reviewed in clinic and consents were singed on 12/01/20. Hx of one prior . complicated by anxiety. - CONSULTS | PROCEDURES Procedures: Spontaneous vaginal delivery - HOSPITAL COURSE Hospital Course: STAGE I: 30 yo at 39+2 wga admitted on 12/08/20 for elective induction of labor. Initial SVE was 1.5/50/-3. Patient received misoprostol 50 mcg BC x2. A Orr balloon was then placed followed with pitocin to a max dose of 4 mU/min. Epidural for pain management. Artificial rupture of membranes at 22:33 notable for passage of clear fluid. GBS negative; antibiotics were not indicated. Cat I tracing with periods of Cat II tracing throughout Stage I labor. STAGE II: Patient was completed at 00:45 on 12/09/20. She labored down and then started pushing at 1:15. She delivered a vigorous and viable male infant from direct OA position at 1:32 am, weight and Apgars pending. No nuchal cord. Infant was delivered to maternal chest. Cord clamping was delayed until pulsations ceased. It was then clamped x2 and cut. STAGE III: Placenta was delivered via manual expression at 1:40 am. it was examined and found to be intact. Perineum was examined and found to have a hemostatic first degree laceration. It was repaired, per patient request, with 3-0 Vicryl in the usual sterile fashion in layers. Total EBL was 200 cc. Procedure was well tolerated and without complication. PP course was uncomplicated. By day #1, patient was meeting goals for discharge. Discharged to home. Confirmed Rh positive. - ALLERGIES Allergies/Adverse Reactions: Allergies Allergy/AdvReac Type Severity Reaction Status Date / Time banana Allergy Hives Verified 07/04/20 04:39 kiwi Allergy Anaphylaxis Verified 07/04/20 04:39 red (food color) Allergy Respiratory Verified 07/04/20 04:39 bees Allergy Unknown Uncoded 07/26/19 08:30 - MEDICATIONS Home Medications: Ambulatory Orders Medication Instructions Recorded Confirmed Metoclopramide [Reglan] 10 mg PO Q6H PRN #14 tablet 07/04/20 Ondansetron Odt [Zofran] 4 mg TL Q6H PRN #10 tablet 07/04/20 Promethazine [Phenergan] 12.5 mg PO Q6HR 07/04/20 07/04/20 Acetaminophen [Acetaminophen Extra 1,000 mg PO Q8H PRN #60 tablet 12/10/20 Strength] Ibuprofen [Motrin] 600 mg PO Q6H PRN #60 tab 12/10/20 - LABS Result Diagrams: 12/08/20 09:30 - FOLLOW UP Follow Up: [address] Nair - TIME SPENT Time Spent in Discharge (Minutes): 30"
== END 2020-12-10 13:00 | disposition home or self-care (01) | DRG 807 ==
LOC: WFO 08:34 → FBP 08:34 → WFO 09:16 → FBP 09:17 → OBSVTOIN 21:24
PROVIDERS: ADMIT Obstetrics & Gynecology; ATTEND Obstetrics & Gynecology
PROC: 10907ZC Drainage of Amniotic Fluid, Therapeutic from Products of Conception, Via Natural or Artificial Opening (ICD-10-PCS; 2020-12-08)
PROC: 10E0XZZ Delivery of Products of Conception, External Approach (ICD-10-PCS; principal; 2020-12-09)
PROC: 0HQ9XZZ Repair Perineum Skin, External Approach (ICD-10-PCS; 2020-12-09)
DX: O99.344 Other mental disorders complicating childbirth (principal); Z37.0 Single live birth; F41.9 Anxiety disorder, unspecified; O70.0 First degree perineal laceration during delivery; O99.892 Other specified diseases and conditions complicating childbirth; R87.620 Atypical squamous cells of undetermined significance on cytologic smear of vagina (ASC-US); F90.9 Attention-deficit hyperactivity disorder, unspecified type; F32.9 Major depressive disorder, single episode, unspecified; Z3A.39 39 weeks gestation of pregnancy; Z79.899 Other long term (current) drug therapy; Z87.891 Personal history of nicotine dependence
CPT/HCPCS: 36415; 85025; 86850; 86900; 86901; 96374; A9270; G0378; J7120; 59200

== ENCOUNTER 2021-05-12 18:58 | Outpatient (CLI) | payer MEDICAID ==
--- NOTE | 2021-05-12 21:06 | Ultrasound Report ---
PROCEDURE: OB First Trimester w/TV INDICATIONS: POSITIVE TEST OUTSIDE/PRIOR DATING DATA: Last menstrual period (LMP): 03/09/2021. LMP-based estimated date of delivery (ILANA): 12/14/2021. First dating scan (date and location): 05/12/2021. Estimated date of delivery (ILANA) from first dating scan: 01/05/2022. The below data below was generated using the ultrasound ILANA of 01/05/2022 TECHNIQUE: Real-time scanning was performed of the fetus and maternal pelvic organs, with image documentation. Endovaginal scanning was also performed to better visualize the fetus and maternal ovaries. COMPARISON: None FINDINGS: Embryo: Single intrauterine identified. pole is identified. [place]-rump length measur es 0.34 cm corresponding to ultrasound estimated gestational age of 6 weeks 0 days. No heart mo tion identified. Measurement variability in dating: +/- 4 weeks by LMP, +/- 7 days by mean sac diameter (use before 6 weeks gestation if crown-rump length not able to be measured), +/- 5 days by crown-rump length (6-12 weeks gestation). Maternal organs: Left corpus luteal cyst. IMPRESSION: Intrauterine without heart motion. Findings could represent early versus no nviable . Recommend close clinical observation, correlation with serial beta hCG and short-t erm obstetrical ultrasound follow-up. Reviewed by: Radha Hutchison MD, PhD on 05/12/2021 9:04 PM PDT Approved by: Radha Hutchison MD, PhD on 05/12/2021 9:04 PM PDT Station ID: [id number]
== END 2021-05-12 18:59 | disposition home or self-care (01) ==
LOC: DI 18:58
PROVIDERS: ATTEND Obstetrics & Gynecology
DX: O36.80X0 Pregnancy with inconclusive fetal viability, not applicable or unspecified (principal); Z3A.01 Less than 8 weeks gestation of pregnancy

== ENCOUNTER 2021-05-19 18:20 | Outpatient (CLI) | payer MEDICAID | END 2021-05-19 18:21 | disposition home or self-care (01) | LOC: LAB 18:20 | PROVIDERS: ATTEND Obstetrics & Gynecology | DX: O20.9 Hemorrhage in early pregnancy, unspecified (principal); Z32.01 Encounter for pregnancy test, result positive | CPT/HCPCS: 36415; 84702 ==

== ENCOUNTER 2023-03-15 19:41 | Emergency (ER) | payer MEDICAID ==
[2023-03-15] MEDS ORDERED: SODIUM CHLORIDE 0.9% 1,000 ML IV STA (20:02)
[2023-03-15 20:05] VITALS: BP 108/61; O2SAT 98
[2023-03-15] MEDS ORDERED: ACETAMINOPHEN 325 MG TABLET PO STA (20:10)
[2023-03-15] MEDS ORDERED: ONDANSETRON 4 MG/2 ML VIAL IVP STA (20:10)
[2023-03-15 20:12] LABS: RAPID STREP SCREEN Negative (Negative)
[2023-03-15 20:26] LABS: BASOPHILS % (AUTO) 0.2 %; EOSINOPHILS # (AUTO) 0.1 10^3/uL (0.0-0.7); EOSINOPHILS % (AUTO) 0.4 %; HGB - HEMOGLOBIN 14.9 g/dL (12.0-16.0); LYMPHOCYTES # (AUTO) 0.2 10^3/uL (1.5-3.5); LYMPHOCYTES % (AUTO) 1.6 %; MEAN CORPUSCULAR HEMOGLOBIN 30.5 pg (27.0-31.0); MEAN CORPUSCULAR HGB CONC 33.9 g/dL (32.0-36.0); MEAN CORPUSCULAR VOLUME 90.2 fL (81.0-99.0); MONOCYTES # (AUTO) 0.3 10^3/uL (0.0-1.0); MONOCYTES % (AUTO) 2.5 %; NEUTROPHILS # (AUTO) 11.6 10^3/uL (1.5-6.6); NEUTROPHILS % (AUTO) 95.1 %; PLT - PLATELET COUNT 240 10^3/uL (130-450); RED BLOOD COUNT 4.88 10^6/uL (4.20-5.40); RED CELL DISTRIBUTION WIDTH 13.7 % (12.0-15.0); WHITE BLOOD COUNT 12.2 x10^3/uL (4.8-10.8)
[2023-03-15 20:36] LABS: INFECTIOUS MONONUCLEOSIS NEGATIVE (Negative)
--- NOTE | 2023-03-15 20:37 | ED Physician Documentation ---
History of Present Illness - Stated complaint Stated Complaint: SOA - Chief complaint Chief Complaint: Resp - Additonal information Additional information: Patient a 32-year-old female presenting to the emergency department with chief complaint fever, chills, nausea, vomiting. Reports sore throat and feeling generally unwell for the last few days. Developed nausea, vomiting and lower abdominal pain earlier today. No known sick contacts, diarrhea, recent travel. Reports infrequent alcohol use as well as 3 times weekly marijuana use. Denies regular nonsteroidal anti-inflammatory medications. Review of Systems Constitutional: reports: Fever Eyes: denies: Loss of vision Ears: denies: Loss of hearing Throat: reports: Sore throat GI: reports: Abdominal Pain, Nausea, Vomiting PD PAST MEDICAL HISTORY - Past Medical History Cardiovascular: None Respiratory: None Neuro: None Endocrine/Autoimmune: None GI: Cholelithiasis, Other [employer]LECT[employer]ICAL SUBC[employer]TRACTOR: None : None HEENT: Other Psych: None Musculoskeletal: None Derm: None - Past Surgical History Past Surgical History: Yes General: Cholecystectomy - Present Medications Home Medications: Ambulatory Orders Medication Instructions Recorded Confirmed Acetaminophen [Tylenol] 650 mg PO Q6H PRN #30 tab 03/15/23 Ibuprofen [Motrin] 800 mg PO Q8H PRN #30 tablet 03/15/23 Menthol [Cough Drops] 9.1 mg MM Q6HR #30 each 03/15/23 Ondansetron Odt [Zofran] 4 mg TL Q6H PRN #10 tablet 03/15/23 - Allergies Allergies/Adverse Reactions: Allergies Allergy/AdvReac Type Severity Reaction Status Date / Time banana Allergy Hives Verified 03/15/23 19:59 kiwi Allergy Anaphylaxis Verified 03/15/23 19:59 red (food color) Allergy Respiratory Verified 03/15/23 19:59 bees Allergy Unknown Uncoded 03/15/23 19:59 - Social History Does the pt smoke?: Yes Smoking Status: Former smoker Does the pt drink ETOH?: Yes Does the pt have substance abuse?: No - Immunizations Immunizations are current?: Yes - POLST Patient has POLST: No Results - Vitals Vitals: Vital Signs - 24 hr 03/15/23 19:47 Temperature 38.1 C H Heart Rate 104 H Respiratory 19 Rate Blood Pressure 108/61 O2 Saturation 98 Oxygen O2 Source Room air - EKG (time done) 2033 EKG releavant findings:: EKG personally interpreted by author of this note. Relevant findings are: Sinus rhythm with rate 90 bpm. Normal axis. Normal MT, QRS, QTc intervals. No ST segment elevations or T wave inversions. - Labs Labs: Laboratory Tests 03/15/23 03/15/23 03/15/23 19:53 19:53 20:15 WBC 12.2 H RBC 4.88 Hgb 14.9 Hct 44.0 MCV 90.2 MCH 30.5 MCHC 33.9 RDW 13.7 Plt Count 240 MPV 9.0 Neut # (Auto) 11.6 H Lymph # (Auto) 0.2 L [place] # (Auto) 0.3 Eos # (Auto) 0.1 Baso # (Auto) 0.0 Absolute Nucleated RBC 0.00 Nucleated RBC % 0.0 Sodium Potassium Chloride Carbon Dioxide Anion Gap BUN Creatinine Estimated GFR (MDRD) Glucose Lactic Acid Calcium Magnesium Total Bilirubin AST ALT Alkaline Phosphatase Total Protein Albumin Globulin Albumin/Globulin Ratio Lipase Urine Color Urine Clarity Urine pH Ur Specific [place] Urine Protein Urine Glucose (UA) Urine Ketones Urine Occult Blood Urine Nitrite Urine Bilirubin Urine Urobilinogen Ur Leukocyte Esterase Urine RBC Urine WBC Ur Squamous Epith Cells Urine Bacteria Urine Mucus Ur Microscopic Review Urine Culture Comments Nasal Adenovirus (PCR) NOT DETECTED Nasal B. parapertussis DNA (PCR) NOT DETECTED Nasal Coronavir 229E PCR NOT DETECTED Nasal Coronavir HKU1 PCR NOT DETECTED Nasal Coronavir NL63 PCR NOT DETECTED Nasal Coronavir OC43 PCR NOT DETECTED Nasal Enterovir/Rhinovir PCR NOT DETECTED Nasal Influenza B PCR NOT DETECTED Nasal Influenza A PCR NOT DETECTED Nasal Parainfluen 1 PCR NOT DETECTED Nasal Parainfluen 2 PCR NOT DETECTED Nasal Parainfluen 3 PCR NOT DETECTED Nasal Parainfluen 4 PCR NOT DETECTED Nasal RSV (PCR) NOT DETECTED Nasal B.pertussis DNA PCR NOT DETECTED Nasal C.pneumoniae (PCR) NOT DETECTED Bhargav Human Metapneumo PCR NOT DETECTED Nasal M.pneumoniae (PCR) NOT DETECTED Nasal SARS-CoV-2 (PCR) NOT DETECTED Urine Opiates Screen Ur Oxycodone Screen Urine Methadone Screen Ur Propoxyphene Screen Ur Barbiturates Screen Ur Tricyclics Screen Ur Phencyclidine Scrn Ur Amphetamine Screen U Methamphetamines Scrn U Benzodiazepines Scrn Urine Cocaine Screen U Cannabinoids Screen Ethyl Alcohol Infectious [place] Assay Group A Strep Rapid Negative 03/15/23 03/15/23 03/15/23 20:15 20:15 20:15 WBC RBC Hgb Hct MCV MCH MCHC RDW Plt Count MPV Neut # (Auto) Lymph # (Auto) [place] # (Auto) Eos # (Auto) Baso # (Auto) Absolute Nucleated RBC Nucleated RBC % Sodium 137 Potassium 3.4 L Chloride 107 Carbon Dioxide 21 Anion Gap 9.0 BUN 8 Creatinine 0.7 Estimated GFR (MDRD) 96 Glucose 124 H Lactic Acid 1.5 Calcium 9.3 Magnesium 1.5 L Total Bilirubin 1.0 AST 12 ALT 10 Alkaline Phosphatase 70 Total Protein 7.0 Albumin 4.3 Globulin 2.7 Albumin/Globulin Ratio 1.6 Lipase 7 L Urine Color Urine Clarity Urine pH Ur Specific [place] Urine Protein Urine Glucose (UA) Urine Ketones Urine Occult Blood Urine Nitrite Urine Bilirubin Urine Urobilinogen Ur Leukocyte Esterase Urine RBC Urine WBC Ur Squamous Epith Cells Urine Bacteria Urine Mucus Ur Microscopic Review Urine Culture Comments Nasal Adenovirus (PCR) Nasal B. parapertussis DNA (PCR) Nasal Coronavir 229E PCR Nasal Coronavir HKU1 PCR Nasal Coronavir NL63 PCR Nasal Coronavir OC43 PCR Nasal Enterovir/Rhinovir PCR Nasal Influenza B PCR Nasal Influenza A PCR Nasal Parainfluen 1 PCR Nasal Parainfluen 2 PCR Nasal Parainfluen 3 PCR Nasal Parainfluen 4 PCR Nasal RSV (PCR) Nasal B.pertussis DNA PCR Nasal C.pneumoniae (PCR) Bhargav Human Metapneumo PCR Nasal M.pneumoniae (PCR) Nasal SARS-CoV-2 (PCR) Urine Opiates Screen Ur Oxycodone Screen Urine Methadone Screen Ur Propoxyphene Screen Ur Barbiturates Screen Ur Tricyclics Screen Ur Phencyclidine Scrn Ur Amphetamine Screen U Methamphetamines Scrn U Benzodiazepines Scrn Urine Cocaine Screen U Cannabinoids Screen Ethyl Alcohol < 10.0 Infectious [place] Assay NEGATIVE Group A Strep Rapid 03/15/23 22:05 WBC RBC Hgb Hct MCV MCH MCHC RDW Plt Count MPV Neut # (Auto) Lymph # (Auto) [place] # (Auto) Eos # (Auto) Baso # (Auto) Absolute Nucleated RBC Nucleated RBC % Sodium Potassium Chloride Carbon Dioxide Anion Gap BUN Creatinine Estimated GFR (MDRD) Glucose Lactic Acid Calcium Magnesium Total Bilirubin AST ALT Alkaline Phosphatase Total Protein Albumin Globulin Albumin/Globulin Ratio Lipase Urine Color YELLOW Urine Clarity CLEAR Urine pH 5.5 Ur Specific [place] >=1.030 H Urine Protein NEGATIVE Urine Glucose (UA) NEGATIVE Urine Ketones NEGATIVE Urine Occult Blood LARGE H Urine Nitrite NEGATIVE Urine Bilirubin NEGATIVE Urine Urobilinogen 0.2 (NORMAL) Ur Leukocyte Esterase NEGATIVE Urine RBC 6-10 H Urine WBC 0-3 Ur Squamous Epith Cells MANY Squamous H Urine Bacteria Moderate H Urine Mucus Moderate Strands Ur Microscopic Review INDICATED Urine Culture Comments NOT INDICATED Nasal Adenovirus (PCR) Nasal B. parapertussis DNA (PCR) Nasal Coronavir 229E PCR Nasal Coronavir HKU1 PCR Nasal Coronavir NL63 PCR Nasal Coronavir OC43 PCR Nasal Enterovir/Rhinovir PCR Nasal Influenza B PCR Nasal Influenza A PCR Nasal Parainfluen 1 PCR Nasal Parainfluen 2 PCR Nasal Parainfluen 3 PCR Nasal Parainfluen 4 PCR Nasal RSV (PCR) Nasal B.pertussis DNA PCR Nasal C.pneumoniae (PCR) Bhargav Human Metapneumo PCR Nasal M.pneumoniae (PCR) Nasal SARS-CoV-2 (PCR) Urine Opiates Screen NEGATIVE Ur Oxycodone Screen NEGATIVE Urine Methadone Screen NEGATIVE Ur Propoxyphene Screen NEGATIVE Ur Barbiturates Screen NEGATIVE Ur Tricyclics Screen NEGATIVE Ur Phencyclidine Scrn NEGATIVE Ur Amphetamine Screen NEGATIVE U Methamphetamines Scrn NEGATIVE U Benzodiazepines Scrn NEGATIVE Urine Cocaine Screen NEGATIVE U Cannabinoids Screen POSITIVE H Ethyl Alcohol Infectious [place] Assay Group A Strep Rapid PD Medical Decision Making - ED course Complexity details: reviewed results, re-evaluated patient, considered differential, d/w patient ED course: Patient 32-year-old female presenting the emergency department with sore throat, body ache, fever, nausea, vomiting. Of note she initially reported a symptoms of shortness of air however denied any shortness of breath or persistent cough during my exam and had clear aeration in all lung joyce. Was tachycardic with low-grade fever on arrival to the emergency department. IV access was established. COVID, influenza, RSV and respiratory viral panel negative. Strep pharyngitis swab negative. Mononucleosis swab negative. Labs demonstrated a mild leukocytosis but no other significant finding. Patient was given doses of Zofran, Reglan and IV hydration. On reevaluation was reporting feeling significantly better and no longer nauseous. Tolerated a p.o. trial in the emergency department. HEENT exam demonstrated some erythema without exudates in the posterior oropharynx but no uvular deviation, sublingual elevation or tracheal mobility that would be of concern for deep space neck infection. She did have some mild tender jugulodigastric adenopathy. She was given a dose of Decadron. At this time it appears that the most likely etiology for her symptoms is viral infection however she does have blood cultures as well as a strep swab culture pending. At this time will discharge with medication for symptomatic management and encourage careful follow-up with primary care. Otherwise clear return precautions were given prior to discharge. Departure - Departure Disposition: Home, Self Care Clinical Impression: Sore throat Nausea and vomiting Qualifiers: Vomiting type: unspecified Qualified Code(s): R11.2 - Nausea with vomiting, unspecified Prescriptions: Menthol [Cough Drops] 9.1 mg MM Q6HR #30 each Ibuprofen [Motrin] 800 mg PO Q8H PRN #30 tablet PRN Reason: PAIN &/OR FEVER Acetaminophen [Tylenol] 650 mg PO Q6H PRN #30 tab PRN Reason: Pain Ondansetron Odt [Zofran] 4 mg TL Q6H PRN #10 tablet PRN Reason: Nausea / Vomiting Comments: Thank you for allowing us to care for you today at [facility]. Today in the emergency department your evaluated for any possible life- threatening medical emergency. Overall the testing performed in the emergency department including your throat and nasal swabs, blood work, EKG was all very reassuring. You do have blood cultures as well as a strep culture that is pending and if either of these are positive we will contact you directly at home in the next few days. I have written prescriptions which were sent to [facility] to help with your symptoms including any ongoing nausea, pain or sore throat. Please make a follow-up appoint with your primary care doctor soon as possible. If you are needed for primary care doctor there is a list of available PCPs in this discharge packet. If it anytime you have any new or worsening symptoms please not hesitate to return. Forms: PCP List Discharge Date/Time: 03/15/23 22:22
[2023-03-15 20:42] LABS: ALBUMIN 4.3 g/dL (3.2-5.5); ALBUMIN/GLOBULIN RATIO 1.6 (1.0-2.2); ALKALINE PHOSPHATASE 70 IU/L (42-121); ALT ALANINE AMINOTRANSFERASE 10 IU/L (10-60); AST ASPARTATE AMINOTRANSFERASE 12 IU/L (10-42); BUN - BLOOD UREA NITROGEN 8 mg/dL (6-20); CALCIUM 9.3 mg/dL (8.5-10.3); CARBON DIOXIDE - CO2 21 mmol/L (21-32); CHLORIDE 107 mmol/L (101-111); CREATININE 0.7 mg/dL (0.6-1.3); ETOH - ETHANOL < 10.0 mg/dL; GFR - MDRD 96 (>89); GLUCOSE 124 mg/dL (74-104); MAGNESIUM 1.5 mg/dL (1.7-2.3); POTASSIUM 3.4 mmol/L (3.5-4.5); SODIUM 137 mmol/L (135-145)
[2023-03-15 20:44] LABS: LIPASE 7 U/L (11-82)
[2023-03-15 20:54] LABS: B. PARAPERTUSSIS- RESP PCR PAN NOT DETECTED; B. PERTUSSIS- RESP PCR PANEL NOT DETECTED; C. PNEUMONIAE- RESP PCR PANEL NOT DETECTED; CORONAVIRUS 229E-RESP PCR NOT DETECTED; CORONAVIRUS HKU1-RESP PCR NOT DETECTED; CORONAVIRUS NL63-RESP PCR NOT DETECTED; CORONAVIRUS OC43-RESP PCR NOT DETECTED; HUMAN METAPNEUMOVIRUS NOT DETECTED; INFLUENZA A- RESP PCR PANEL NOT DETECTED; INFLUENZA B - RESP PCR PANEL NOT DETECTED; M. PNEUMONIAE- RESP PCR PANEL NOT DETECTED; PARAINFLUENZA VIRUS 1 NOT DETECTED; PARAINFLUENZA VIRUS 2 NOT DETECTED; PARAINFLUENZA VIRUS 3 NOT DETECTED; PARAINFLUENZA VIRUS 4 NOT DETECTED; RHINOVIRUS/ENTEROVIRUS NOT DETECTED; RSV- RESP PCR PANEL NOT DETECTED; SARS-CoV-2 -RESP PCR PANEL NOT DETECTED
[2023-03-15] MEDS ORDERED: METOCLOPRAMIDE 10 MG/2 ML VIAL IVP STA (21:18)
[2023-03-15] MEDS ORDERED: DEXAMETHASONE 10 MG/ML VIAL PO STA (21:50)
[2023-03-15] MEDS ORDERED: CHERRY SYRUP 10 ML UDC PO ONE (21:50)
[2023-03-15] MEDS ORDERED: ONDANSETRON ODT 4 MG Prepack 2 TL PRN (21:52)
[2023-03-15 22:16] LABS: BILIRUBIN,URINE NEGATIVE (NEGATIVE); GLUCOSE, URINE (UA) NEGATIVE (NEGATIVE); KETONES,URINE (UA) NEGATIVE (NEGATIVE); LEUKOCYTE ESTERASE, URINE NEGATIVE (NEGATIVE); MUDS CUTOFF CONCENTRATIONS CUTOFF CONC BELOW:; NITRITE,URINE NEGATIVE (NEGATIVE); OCCULT BLOOD,URINE LARGE (NEGATIVE); PH,URINE 5.5 PH (5.0-7.5); PROTEIN,URINE NEGATIVE (NEGATIVE); UROBILINOGEN,URINE 0.2 (NORMAL) E.U./dL (NORMAL)
[2023-03-15 22:17] LABS: CLARITY,URINE CLEAR (CLEAR)
[2023-03-15 22:24] LABS: BACTERIA,URINE Moderate /HPF (None Seen); MUCUS,URINE Moderate Strands; SQUAMOUS EPITHELIAL CELL,UR MANY Squamous (<= Few); WBC,URINE 0-3 /HPF (0-5)
[2023-03-15 22:27] LABS: AMPHETAMINE SCREEN,URINE NEGATIVE (NEGATIVE); BARBITURATE SCREEN,UR NEGATIVE (NEGATIVE); BENZODIAZEPINES SCREEN, URINE NEGATIVE (NEGATIVE); COCAINE SCREEN URINE NEGATIVE (NEGATIVE); METHADONE SCREEN, URINE NEGATIVE (NEGATIVE); METHAMPHETAMINES SCREEN, URINE NEGATIVE (NEGATIVE); OPIATE SCREEN, URINE NEGATIVE (NEGATIVE); OXYCODONE SCREEN, URINE NEGATIVE (NEGATIVE); PROPOXYPHENE SCREEN, URINE NEGATIVE (NEGATIVE); THC CANNABINOID SCREEN, URINE POSITIVE (NEGATIVE); TRICYCLIC ANTIDEPRESSANT,URINE NEGATIVE (NEGATIVE)
== END 2023-03-15 22:22 | disposition home or self-care (01) ==
LOC: ED 19:41
DX: J02.9 Acute pharyngitis, unspecified (principal); R11.2 Nausea with vomiting, unspecified; Z20.822 Contact with and (suspected) exposure to COVID-19; Z87.891 Personal history of nicotine dependence
CPT/HCPCS: 36415; 80053; 80306; 80320; 81001; 83605; 83690; 83735; 85025; 86308; 87040; 87070; 87430; 87633; 93005; 96374; 96375; 99284; A9270; J2765; 81003; 87086